=== PATIENT | female | born 1945 | race American Indian/Alaskan Native ===

== ENCOUNTER 2018-05-25 18:03 | Emergency (ER) | payer OTHER ==
[~2018-05-25] VITALS: Ht 160 cm; Wt 113.4 kg
[~2018-05-25 18:03] MED LIST: ACTOPLUS MET; ACTOPLUS MET 15/850; AMOCLA875 PO; ASPI81EC; ASPI81EC PO; BUME2 PO; CHLO25B PO; CREON; Cardizem CD 24240 MG PO; DOXY100 PO; ERGO50000; ERYT.5TO OD; EZET10 PO; FERROUS GLUCONATE; FISH1000 PO; FURO20 PO; FURO40 PO; GABA300 PO; GABA600 PO; GAVILAX17 GM PO; GLUCHON PO; HYDACE5 PO; HYDMETSO OP; IBUP800 PO; INS70/30PN; INSUASPI SC; INSULANPEN; INSULANPEN SC; LEVEMIR FL100 UNIT/1 SC; LEVO750 PO; LIDO5TP TOP; LISI5 PO; MAGCHL64ER PO; METF500 PO; METO2.5 PO; METO25ER PO; METO50 PO; METO50ER; METO50ER PO; METR70GEL VAG; Micro-K10 MEQ PO; Novolog Fl100 UNIT/1 SC; PANT40 PO; PIOG15; POTA10T PO; POTCHL20ER PO; PRED20 PO; Pedi-Dri 100,0060 GM TOP; QUIN10; ROXICODONE5 MG PO; SULTRIDS PO; Spironolactone100 MG PO; Spironolactone50 MG PO; TETR250 PO; TETRACYCLINE; TRAM50 PO; TRIA55OI; Ventolin Soln3 ML INH; WARF4 PO; Zantac150 MG PO
[2018-05-25 18:46] LABS: BASOPHILS ABSOLUTE AUTO 0.06 K/mm3 (0.00-0.23); BASOPHILS PERCENT AUTO 1 % (0-2); EOSINOPHILS ABSOLUTE AUTO 0.25 K/mm3 (0.00-0.68); EOSINOPHILS PERCENT AUTO 4 % (0-6); Hemoglobin 14.7 g/dL (11.5-16.0); IMMATURE GRAN ABSOLUTE AUTO 0.01 K/mm3 (0.00-0.10); IMMATURE GRAN PERCENT AUTO 0 % (0-1); LYMPHOCYTES ABSOLUTE AUTO 1.87 K/mm3 (0.84-5.20); LYMPHOCYTES PERCENT AUTO 28 % (21-46); MONOCYTES ABSOLUTE AUTO 0.35 K/mm3 (0.16-1.47); MONOCYTES PERCENT AUTO 5 % (4-13); Mean Corpuscular HGB 30.2 pg (26.0-34.0); Mean Corpuscular HGB Conc 33.4 g/dL (31.5-36.5); Mean Corpuscular Volume 90 fL (80-100); Mean Platelet Volume 9.5 fL (9.1-12.4); NEUTROPHILS ABSOLUTE AUTO 4.21 K/mm3 (1.96-9.15); NEUTROPHILS PERCENT AUTO 62 % (41-73); Platelet Count 234 K/mm3 (150-400); RDW Coefficient Variation 14.6 % (11.7-14.2); RDW Standard Deviation 48.4 fL (35.1-46.3); Red Blood Cell Count 4.87 M/mm3 (3.80-5.20); White Blood Cell Count 6.75 K/mm3 (4.00-11.30)
[2018-05-25 18:59] LABS: International Normalized Ratio 2.35; Prothrombin Time Results 23.1 Sec (9.7-11.5)
[2018-05-25 19:06] LABS: Alanine Aminotransfer (ALT/SGP 45 U/L (12-78); Albumin, Blood 3.4 g/dL (3.4-5.0); Albumin/Globulin Ratio 0.7 (0.8-1.8); Alk Phos 330 U/L (50-136); Anion Gap 9 mmol/L (6-16); Aspartate Aminotrans (AST/SGOT 57 U/L (12-37); Bilirubin, Total 0.5 mg/dL (0.1-1.0); Blood Urea Nitrogen 26 mg/dL (8-24); Bun/Creatinine Ratio 29.1 (12.0-20.0); CO2, Blood 28 mmol/L (21-32); Calcium, Blood 9.6 mg/dL (8.5-10.1); Chloride, Blood 99 mmol/L (98-108); Creatinine, Blood 0.89 mg/dL (0.40-1.00); Globulin, Blood 4.6 g/dL (2.2-4.0); Glomerular Filtration Rate >60 (60-); Glucose, Blood 204 mg/dL (70-99); Potassium, Blood 3.8 mmol/L (3.5-5.5); Sodium, Blood 136 mmol/L (136-145)
== END 2018-05-25 19:13 | disposition home or self-care (01) ==
LOC: ER 18:03
PROVIDERS: Emergency Medicine
DX: S09.90XA Unspecified injury of head, initial encounter (principal); K06.8 Other specified disorders of gingiva and edentulous alveolar ridge; D68.32 Hemorrhagic disorder due to extrinsic circulating anticoagulants; X58.XXXA Exposure to other specified factors, initial encounter; Z88.8 Allergy status to other drugs, medicaments and biological substances; Z88.5 Allergy status to narcotic agent; Z79.899 Other long term (current) drug therapy; Z79.01 Long term (current) use of anticoagulants; Z79.4 Long term (current) use of insulin; Z79.84 Long term (current) use of oral hypoglycemic drugs; Z79.2 Long term (current) use of antibiotics; E11.40 Type 2 diabetes mellitus with diabetic neuropathy, unspecified; I48.0 Paroxysmal atrial fibrillation; I50.32 Chronic diastolic (congestive) heart failure
CPT/HCPCS: 80053; 85025; 85610; 85730; 99283

== ENCOUNTER 2019-02-01 13:03 | Inpatient (IN) | payer OTHER ==
[~2019-02-01] VITALS: Ht 160 cm; Wt 114.2 kg
[~2019-02-01 13:03] MED LIST changes: +ACET325 PO; +CEFU500T30 PO; +NOVOLOG FL100 UNIT/1 SC; -Novolog Fl100 UNIT/1 SC
[2019-02-01 13:33] LABS: Hematocrit 46.4 % (33.0-51.0); Mean Corpuscular HGB 29.5 pg (26.0-34.0); Mean Corpuscular HGB Conc 32.3 g/dL (31.5-36.5); Mean Corpuscular Volume 91 fL (80-100); Platelet Count 185 K/mm3 (150-400); RDW Coefficient Variation 14.2 % (11.7-14.2); RDW Standard Deviation 47.7 fL (35.1-46.3); Red Blood Cell Count 5.08 M/mm3 (3.80-5.20); White Blood Cell Count 15.91 K/mm3 (4.00-11.30)
[2019-02-01] MEDS ORDERED: Flonase 0.05% N16 GM (13:42)
[2019-02-01] MEDS ORDERED: EZET10 PO (13:45)
[2019-02-01] MEDS ORDERED: COLCRYS0.6 MG PO (13:52)
[2019-02-01] MEDS ORDERED: [UNRECOGNIZED DRUG - OTHER] PO (13:52)
[2019-02-01] MEDS ORDERED: Potassium Citra5 MEQ PO (13:53)
[2019-02-01 14:18] LABS: BAND PERCENT MAN 9 % (0-8); BASOPHILS PERCENT MAN 0 % (0-2); EOSINOPHILS PERCENT MAN 0 % (0-6); LYMPHOCYTES ABSOLUTE MAN 0.31 K/mm3 (0.84-5.20); LYMPHOCYTES PERCENT MAN 2 % (21-46); MONOCYTES ABSOLUTE MAN 0.15 K/mm3 (0.16-1.47); MONOCYTES PERCENT MAN 1 % (4-13); NEUTROPHILS ABSOLUTE MAN 15.43 K/mm3 (1.96-9.15); SEG NEUTROPHILS PERCENT MAN 88 % (41-73); TOTAL CELLS COUNTED 100
[2019-02-01 15:25] LABS: Albumin/Globulin Ratio 0.6 (0.8-1.8); Bilirubin, Total 1.9 mg/dL (0.1-1.0); Calcium, Blood 9.9 mg/dL (8.5-10.1); Creatinine, Blood 1.48 mg/dL (0.40-1.00); Globulin, Blood 4.7 g/dL (2.2-4.0); Potassium, Blood 3.7 mmol/L (3.5-5.5); Total Protein, Blood 7.7 g/dL (6.4-8.2)
[2019-02-01 15:58] LABS: Source, Urine Clean Catch
[2019-02-01 16:07] LABS: Bilirubin, Urine Neg (Neg); Blood, Urine 5+ (Neg); Glucose Qualitative, Urine Neg (Neg); Ketones, Urine Neg (Neg); Leukocyte Esterase, Urine 3+ (Neg); Nitrite, Urine Neg (Neg); Protein, Urine 3+ (Neg); Urobilinogen, Urine NORM (Normal)
[2019-02-01 16:20] LABS: Appearance, Urine Cloudy (Clear); Color, Urine Yellow (P-Yellow)
[2019-02-01 16:21] LABS: Bacteria Many /hpf; Red Blood Cells, Urine TNTC /hpf (0-2); Squamous Epithelial Cells Few /hpf (Few); White Blood Cells, Urine TNTC /hpf (0-5)
[2019-02-01 18:34] LABS: International Normalized Ratio 3.38; Prothrombin Time Results 32.1 Sec (9.7-11.5)
[2019-02-01] MEDS ORDERED: CALC.25 PO (18:43)
[2019-02-01] MEDS ORDERED: BUME2 PO (18:46)
[2019-02-01] MEDS ORDERED: CALCIUM 600 +1 EAC7 PO (18:49)
[2019-02-02 05:31] LABS: BASOPHILS ABSOLUTE AUTO 0.08 K/mm3 (0.00-0.23); BASOPHILS PERCENT AUTO 0 % (0-2); EOSINOPHILS PERCENT AUTO 0 % (0-6); Hematocrit 43.8 % (33.0-51.0); IMMATURE GRAN ABSOLUTE AUTO 0.37 K/mm3 (0.00-0.10); IMMATURE GRAN PERCENT AUTO 2 % (0-1); LYMPHOCYTES ABSOLUTE AUTO 0.42 K/mm3 (0.84-5.20); LYMPHOCYTES PERCENT AUTO 2 % (21-46); MONOCYTES ABSOLUTE AUTO 1.02 K/mm3 (0.16-1.47); MONOCYTES PERCENT AUTO 5 % (4-13); Mean Corpuscular HGB 29.5 pg (26.0-34.0); Mean Corpuscular Volume 92 fL (80-100); Mean Platelet Volume 9.8 fL (9.1-12.4); NEUTROPHILS PERCENT AUTO 91 % (41-73); Platelet Count 150 K/mm3 (150-400); RDW Coefficient Variation 14.1 % (11.7-14.2); RDW Standard Deviation 47.8 fL (35.1-46.3); Red Blood Cell Count 4.75 M/mm3 (3.80-5.20); White Blood Cell Count 20.39 K/mm3 (4.00-11.30)
[2019-02-02 05:49] LABS: International Normalized Ratio 3.14
[2019-02-02 05:55] LABS: Bun/Creatinine Ratio 25.7 (12.0-20.0); Calcium, Blood 9.3 mg/dL (8.5-10.1); Creatinine, Blood 1.75 mg/dL (0.40-1.00); Potassium, Blood 3.7 mmol/L (3.5-5.5)
--- NOTE | 2019-02-02 16:25 | NUR ---
SHIFT SUMMARY PCU TRANSFER AT 1545. PATIETN SETTLED INTO ROOM. DENIES PAIN, NAUSEA, AND SHORTNESS OF BREATH. SON AT BEDSIDE. SBA TO BR. CALL LIGHT IN REACH, WILL CONTINUE TO MONITOR.
[2019-02-03 04:18] LABS: Source, Urine Clean Catch
[2019-02-03 04:20] LABS: Bilirubin, Urine Neg (Neg); Blood, Urine 5+ (Neg); Glucose Qualitative, Urine Neg (Neg); Ketones, Urine Neg (Neg); Leukocyte Esterase, Urine 1+ (Neg); Nitrite, Urine Neg (Neg); Protein, Urine 1+ (Neg); Urobilinogen, Urine NORM (Normal)
[2019-02-03 04:28] LABS: Appearance, Urine Clear (Clear); Color, Urine Yellow (P-Yellow)
[2019-02-03 04:29] LABS: Bacteria Rare /hpf; Red Blood Cells, Urine 50-100 /hpf (0-2); Squamous Epithelial Cells Few /hpf (Few); White Blood Cells, Urine 0-2 /hpf (0-5)
--- NOTE | 2019-02-03 04:40 | NUR ---
SHIFT SUMMARY PT SLEPT FAIR, HAS BEEN INCONTINENT OF URINE DURING THE NIGHT. ALSO USES RESTROOM, URINE SAMPLE OBTAINED AND SENT TO LAB. PT CONTINUES TO HAVE OXYGEN ON AT 4L/NC. NO ACUTE EVENTS OVERNIGHT. WILL CONTINUE TO MONITOR.
[2019-02-03 05:17] LABS: BASOPHILS ABSOLUTE AUTO 0.04 K/mm3 (0.00-0.23); BASOPHILS PERCENT AUTO 0 % (0-2); EOSINOPHILS ABSOLUTE AUTO 0.07 K/mm3 (0.00-0.68); EOSINOPHILS PERCENT AUTO 1 % (0-6); Hematocrit 40.9 % (33.0-51.0); Hemoglobin 13.2 g/dL (11.5-16.0); IMMATURE GRAN PERCENT AUTO 1 % (0-1); LYMPHOCYTES ABSOLUTE AUTO 0.52 K/mm3 (0.84-5.20); LYMPHOCYTES PERCENT AUTO 4 % (21-46); MONOCYTES ABSOLUTE AUTO 0.53 K/mm3 (0.16-1.47); MONOCYTES PERCENT AUTO 4 % (4-13); Mean Corpuscular HGB 29.3 pg (26.0-34.0); Mean Corpuscular HGB Conc 32.3 g/dL (31.5-36.5); Mean Corpuscular Volume 91 fL (80-100); Mean Platelet Volume 10.6 fL (9.1-12.4); NEUTROPHILS ABSOLUTE AUTO 11.45 K/mm3 (1.96-9.15); NEUTROPHILS PERCENT AUTO 90 % (41-73); Platelet Count 148 K/mm3 (150-400); RDW Coefficient Variation 14.1 % (11.7-14.2); RDW Standard Deviation 47.4 fL (35.1-46.3); Red Blood Cell Count 4.51 M/mm3 (3.80-5.20); White Blood Cell Count 12.71 K/mm3 (4.00-11.30)
[2019-02-03 05:31] LABS: International Normalized Ratio 2.09; Prothrombin Time Results 20.7 Sec (9.7-11.5)
[2019-02-03 05:47] LABS: Bun/Creatinine Ratio 35.6 (12.0-20.0); Calcium, Blood 9.6 mg/dL (8.5-10.1); Creatinine, Blood 1.35 mg/dL (0.40-1.00); Potassium, Blood 3.6 mmol/L (3.5-5.5)
--- NOTE | 2019-02-03 11:30 | NUR ---
DISCHARGE NOTE PATIENT WILL NOT HAVE A RIDE UNTIL APPROXIMATELY 1430
[2019-02-03] MEDS ORDERED: LEVFLO500 PO (12:56)
--- NOTE | 2019-02-03 13:45 | NUR ---
DISCHARGE NOTE PT DISCHARGED; FAMILY TO ARRIVE TO HOSPITAL @1430 TO TRANSPORT PT HOME. IV DISCONTINUED INTACT. PT VERBALIZED UNDERSTANDING OF MAKING A FOLLOW UP APPT WITH PCP WITH 1 WEEK AND TAKING ANTIBIOTICS FOR FULL COURSE.
== END 2019-02-03 14:28 | disposition home or self-care (01) | DRG 872 ==
LOC: ER 13:03 → ERHOLD 16:58 → MEDS 02-02 11:00 → PCU 02-02 11:20 → MEDS 02-02 15:44 → ENPENDDIS 02-03 10:31 → MEDS 02-03 14:28
PROVIDERS: Emergency Medicine; ADMIT Hospitalist
DX: A41.9 Sepsis, unspecified organism (principal); N39.0 Urinary tract infection, site not specified; I50.32 Chronic diastolic (congestive) heart failure; Z68.41 Body mass index [BMI] 40.0-44.9, adult; R65.20 Severe sepsis without septic shock; B96.20 Unspecified Escherichia coli [E. coli] as the cause of diseases classified elsewhere; Z79.4 Long term (current) use of insulin; I11.0 Hypertensive heart disease with heart failure; E11.40 Type 2 diabetes mellitus with diabetic neuropathy, unspecified; E66.01 Morbid (severe) obesity due to excess calories; Z79.01 Long term (current) use of anticoagulants; I48.2 Chronic atrial fibrillation
CPT/HCPCS: 36415; 71046; 80048; 80053; 81001; 82947; 83605; 83880; 84484; 85025; 85610; 87040; 87077; 87086; 87186; 93005; 93010; 96361; 96365; 96366; 96367; 96375; 99285-25; J0696; J3480; J7030; P9612

== ENCOUNTER 2019-12-05 11:55 | Inpatient (IN) | payer OTHER ==
[~2019-12-05] VITALS: Ht 160 cm; Wt 75.9 kg
[~2019-12-05 11:55] MED LIST changes: +CALCIUM 600 +1 EAC7 PO; +COLCRYS0.6 MG PO; -Cardizem CD 24240 MG PO; +Flonase 0.05% N16 GM; -GABA600 PO; +LEVFLO500 PO; -METF500 PO; -METO50 PO; +[UNRECOGNIZED DRUG - OTHER] PO
[2019-12-05 12:32] LABS: BASOPHILS ABSOLUTE AUTO 0.03 K/mm3 (0.00-0.23); BASOPHILS PERCENT AUTO 1 % (0-2); EOSINOPHILS ABSOLUTE AUTO 0.11 K/mm3 (0.00-0.68); EOSINOPHILS PERCENT AUTO 2 % (0-6); Hematocrit 42.8 % (33.0-51.0); Hemoglobin 13.2 g/dL (11.5-16.0); IMMATURE GRAN ABSOLUTE AUTO 0.01 K/mm3 (0.00-0.10); IMMATURE GRAN PERCENT AUTO 0 % (0-1); LYMPHOCYTES ABSOLUTE AUTO 0.78 K/mm3 (0.84-5.20); LYMPHOCYTES PERCENT AUTO 14 % (21-46); MONOCYTES ABSOLUTE AUTO 0.38 K/mm3 (0.16-1.47); MONOCYTES PERCENT AUTO 7 % (4-13); Mean Corpuscular HGB 30.3 pg (26.0-34.0); Mean Corpuscular HGB Conc 30.8 g/dL (31.5-36.5); Mean Corpuscular Volume 98 fL (80-100); Mean Platelet Volume 9.6 fL (9.1-12.4); NEUTROPHILS ABSOLUTE AUTO 4.12 K/mm3 (1.96-9.15); NEUTROPHILS PERCENT AUTO 76 % (41-73); Platelet Count 157 K/mm3 (150-400); RDW Coefficient Variation 14.8 % (11.7-14.2); RDW Standard Deviation 53.8 fL (35.1-46.3); Red Blood Cell Count 4.36 M/mm3 (3.80-5.20); White Blood Cell Count 5.43 K/mm3 (4.00-11.30)
[2019-12-05 12:43] LABS: Source, Urine Catheter
[2019-12-05 12:48] LABS: Bilirubin, Urine Neg (Neg); Blood, Urine 5+ (Neg); Glucose Qualitative, Urine Neg (Neg); Ketones, Urine Neg (Neg); Leukocyte Esterase, Urine Neg (Neg); Nitrite, Urine Neg (Neg); Protein, Urine Neg (Neg); Specific Gravity, Urine 1.015 (1.003-1.022); Urobilinogen, Urine NORM (Normal)
[2019-12-05 12:52] LABS: Appearance, Urine Clear (Clear); Color, Urine Yellow (P-Yellow)
[2019-12-05 12:53] LABS: Bacteria Rare /hpf; Red Blood Cells, Urine TNTC /hpf (0-2); Squamous Epithelial Cells Few /hpf (Few); White Blood Cells, Urine Not Seen /hpf (0-5)
[2019-12-05 12:55] LABS: Alanine Aminotransfer (ALT/SGP 30 U/L (12-78); Albumin, Blood 3.1 g/dL (3.4-5.0); Albumin/Globulin Ratio 0.7 (0.8-1.8); Alk Phos 321 U/L (50-136); Anion Gap 0 mmol/L (6-16); Aspartate Aminotrans (AST/SGOT 41 U/L (12-37); Bilirubin, Total 0.7 mg/dL (0.1-1.0); Blood Urea Nitrogen 29 mg/dL (8-24); CO2, Blood 43 mmol/L (21-32); Calcium, Blood 10.6 mg/dL (8.5-10.1); Chloride, Blood 96 mmol/L (98-108); Creatinine, Blood 0.63 mg/dL (0.40-1.00); Globulin, Blood 4.5 g/dL (2.2-4.0); Glomerular Filtration Rate >60 (60-); Glucose, Blood 176 mg/dL (70-99); Potassium, Blood 3.8 mmol/L (3.5-5.5); Sodium, Blood 139 mmol/L (136-145); Total Protein, Blood 7.6 g/dL (6.4-8.2)
[2019-12-05] MEDS ORDERED: KEFLEX500 MG PO (13:18)
[2019-12-05] MEDS ORDERED: MAGCHL64ER PO (13:20)
[2019-12-05] MEDS ORDERED: Cardizem CD 24240 MG PO (14:43)
[2019-12-05] MEDS ORDERED: METO50 PO (14:43)
[2019-12-05] MEDS ORDERED: METF500 PO (14:43)
[2019-12-05] MEDS ORDERED: GABA600 PO (14:45)
[2019-12-05] MEDS ORDERED: EZET10 PO (14:45)
[2019-12-05] MEDS ORDERED: Bumetanide2 MG PO (14:46)
[2019-12-05] MEDS ORDERED: Potassium Citra5 MEQ PO (14:48)
[2019-12-05] MEDS ORDERED: WARF4 PO (14:49)
[2019-12-05] MEDS ORDERED: CALC.25 PO (14:49)
[2019-12-05] MEDS ORDERED: ALLOPURINOL100 M1 PO (14:49)
[2019-12-05 16:00] LABS: International Normalized Ratio 1.78; Prothrombin Time Results 18.4 Sec (9.7-11.5)
[2019-12-05] MEDS ORDERED: Fish Oil 10001000 MG (22:37)
[2019-12-05] MEDS ORDERED: TRAM50 (22:37)
[2019-12-06 04:16] LABS: BASOPHILS ABSOLUTE AUTO 0.07 K/mm3 (0.00-0.23); BASOPHILS PERCENT AUTO 1 % (0-2); EOSINOPHILS ABSOLUTE AUTO 0.18 K/mm3 (0.00-0.68); EOSINOPHILS PERCENT AUTO 3 % (0-6); Hematocrit 41.2 % (33.0-51.0); Hemoglobin 12.5 g/dL (11.5-16.0); IMMATURE GRAN PERCENT AUTO 0 % (0-1); LYMPHOCYTES ABSOLUTE AUTO 1.29 K/mm3 (0.84-5.20); LYMPHOCYTES PERCENT AUTO 20 % (21-46); MONOCYTES ABSOLUTE AUTO 0.57 K/mm3 (0.16-1.47); MONOCYTES PERCENT AUTO 9 % (4-13); Mean Corpuscular HGB 29.8 pg (26.0-34.0); Mean Corpuscular HGB Conc 30.3 g/dL (31.5-36.5); Mean Corpuscular Volume 98 fL (80-100); Mean Platelet Volume 9.5 fL (9.1-12.4); NEUTROPHILS ABSOLUTE AUTO 4.46 K/mm3 (1.96-9.15); NEUTROPHILS PERCENT AUTO 68 % (41-73); Platelet Count 165 K/mm3 (150-400); RDW Standard Deviation 53.9 fL (35.1-46.3); White Blood Cell Count 6.57 K/mm3 (4.00-11.30)
[2019-12-06 04:29] LABS: International Normalized Ratio 1.6; Prothrombin Time Results 16.7 Sec (9.7-11.5)
[2019-12-06 04:35] LABS: Alanine Aminotransfer (ALT/SGP 24 U/L (12-78); Albumin, Blood 3.1 g/dL (3.4-5.0); Albumin/Globulin Ratio 0.7 (0.8-1.8); Alk Phos 287 U/L (50-136); Aspartate Aminotrans (AST/SGOT 31 U/L (12-37); Bilirubin, Total 0.9 mg/dL (0.1-1.0); Blood Urea Nitrogen 28 mg/dL (8-24); Calcium, Blood 9.9 mg/dL (8.5-10.1); Chloride, Blood 95 mmol/L (98-108); Creatinine, Blood 0.85 mg/dL (0.40-1.00); Globulin, Blood 4.3 g/dL (2.2-4.0); Glomerular Filtration Rate >60 (60-); Glucose, Blood 115 mg/dL (70-99); Potassium, Blood 3.7 mmol/L (3.5-5.5); Sodium, Blood 142 mmol/L (136-145); Total Protein, Blood 7.4 g/dL (6.4-8.2)
--- NOTE | 2019-12-06 04:35 | NUR ---
END OF SHIFT SUMMARY PT TO UNTIO FROM ED. AMBULATES TO BSC VIA WALKER SBA. PT'S BACKSIDE AND PANUS PRESENTS DARK RED IN AREAS, PT BEING SHIFTEDC IN BED. LUNG SOUNDS DIM WITH BASAL FINE CRACKLES. BAZAN PRESENT ON ADMIT, PINK URINE OUTPUT. PT STATES BREATHING FEELS MUCH BETTER. PT DENIES CP. VSS. HAS MAINTANED SPO2 >92% WELL WITH 4LNC, WHICH IS BASELINE FOR HER. PT AWARE OF UPCOMING PARACENTESIS TODAY. OTHERWISER PT HAS BEEN ASLEEP OFF AND ON T/O NIGHT, HAS BEEN VERY PLEASANT AND HAS BEEN ABLE TO EXPRESS NEEDS WELL. WILL CONTINUE TO MONITOR UNTIL SHIFT CHANGE.
[2019-12-06 05:03] LABS: Anion Gap Unable to Calculate mmol/L (6-16); CO2, Blood >45 mmol/L (21-32)
[2019-12-06 06:01] LABS: PCO2 Arterial 82.7 mmHg (35-45); PO2 Arterial 93.6 mmHg (80-100); pH Blood Arterial 7.38 (7.35-7.45)
--- NOTE | 2019-12-06 06:09 | NUR ---
PROVIDER AM LABS SHOW >45CO2. CALL TO DR CAMACHO. ABG CALLED, PC02 [id number]. OTHER ABG VALUS DISCUSSE AND PT'S CURRENT MENTATION/O2 INTAKE. ORDERS TO DECREASE O2 TOLERATED.
--- NOTE | 2019-12-06 08:00 | NUR ---
ASSUMPTION OF CARE RECEIVED REPORT FROM BUSINESS PROCESS ASSOCIATE IDA SURESH AROUND 714. PT RESTING COMFORTABLY IN BED AAOX3, NO S/S OF DISTRESS, CURRENTLY ON 3L O2 VIA NC. VS STABLE. BAZAN CATHETER IN PLACE DRAINING CLEAR PINK-TINGED URINE. PLAN FOR THORACENTESIS TODAY. BED LOCKED & IN LOWEST POSITION, CALL QURESHI W/ IN REACH. WILL CONTINUE TO MONITOR.
--- NOTE | 2019-12-06 09:30 | NUR ---
PT TRANSPORTED OFF FLOOR TO US FOR THORACENTESIS. LEFT ROOM IN STABLE CONDITION VIA WHEELCHAIR W/ 3L O2 VIA NC IN PLACE. PT'S SON TEENA NOTIFIED VIA TELEPHONE OF PT GOING TO PROCEDURE AT THIS TIME.
[2019-12-06 10:45] LABS: Automated BF RBC Count 0.084 M/mm3 (0-0); Body Fluid WBC Count 650 /mm3 (0-999); RBC Count, Body Fluid 84000 /mm3 (0-0)
[2019-12-06 10:53] LABS: Albumin, Body Fluid 2.3 g/dL; Lactate Dehydrogenase, Body Fl 94 U/L; Protein, Body Fluid 4.3 g/dL; Triglycerides, Body Fluid 42 mg/dL
--- NOTE | 2019-12-06 10:55 | NUR ---
PT RETURNED TO FLOOR FROM US IN STABLE CONDITION. VS STABLE. BANDAID PRESENT TO RIGHT UPPER BACK FROM THORACENTESIS SITE. RESPIRATIONS EVEN & UNLABORED, PT REMAINS ON 3L O2 VIA NC. PT SITTING UP IN CHAIR. WILL CONTINUE TO MONITOR.
[2019-12-06 11:24] LABS: Appearance, Body Fluid Bloody (Clear); Color, Body Fluid Red (None-Yellow)
[2019-12-06 11:37] LABS: pH, Body Fluid 7.9
[2019-12-06 12:00] LABS: Total Cell Count, Body Fluid 100
--- NOTE | 2019-12-06 17:53 | NUR ---
SHIFT SUMMARY NO ACUTE CHANGES THROUGHOUT SHIFT. VS STABLE. PT REMAINS ON 3L O2 VIA NC, PULSE OX MAINTAINING 94-97%. PT DENIED ANY C/O CHEST PAIN/PRESSURE; SOME SOB NOTED W/ EXERTION. PT HAD RIGHT SIDED THORACENTESIS COMPLETED TODAY; SITE UNREMARKABLE; DRESSING REMAINS CDI. BAZAN CATHETER REMOVED AROUND 1700; MONITORING VOIDING STATUS CLOSELY. PT IS OPEN FOR CXR & ECHO TOMORROW. WILL CONITNUE TO MONITOR UNTIL END OF SHIFT.
[2019-12-07 04:46] LABS: BASOPHILS ABSOLUTE AUTO 0.04 K/mm3 (0.00-0.23); BASOPHILS PERCENT AUTO 1 % (0-2); EOSINOPHILS ABSOLUTE AUTO 0.24 K/mm3 (0.00-0.68); EOSINOPHILS PERCENT AUTO 4 % (0-6); Hematocrit 42.9 % (33.0-51.0); Hemoglobin 13.1 g/dL (11.5-16.0); IMMATURE GRAN ABSOLUTE AUTO 0.02 K/mm3 (0.00-0.10); IMMATURE GRAN PERCENT AUTO 0 % (0-1); LYMPHOCYTES PERCENT AUTO 19 % (21-46); MONOCYTES ABSOLUTE AUTO 0.45 K/mm3 (0.16-1.47); MONOCYTES PERCENT AUTO 7 % (4-13); Mean Corpuscular HGB 29.8 pg (26.0-34.0); Mean Corpuscular HGB Conc 30.5 g/dL (31.5-36.5); Mean Corpuscular Volume 98 fL (80-100); Mean Platelet Volume 9.5 fL (9.1-12.4); NEUTROPHILS ABSOLUTE AUTO 4.25 K/mm3 (1.96-9.15); NEUTROPHILS PERCENT AUTO 69 % (41-73); Platelet Count 161 K/mm3 (150-400); RDW Coefficient Variation 14.8 % (11.7-14.2); RDW Standard Deviation 53.3 fL (35.1-46.3)
[2019-12-07 05:00] LABS: PCO2 Arterial 76.5 mmHg (35-45); PO2 Arterial 69.1 mmHg (80-100); pH Blood Arterial 7.41 (7.35-7.45)
[2019-12-07 05:10] LABS: Blood Urea Nitrogen 30 mg/dL (8-24); Bun/Creatinine Ratio 35.8 (12.0-20.0); Calcium, Blood 10.2 mg/dL (8.5-10.1); Chloride, Blood 94 mmol/L (98-108); Creatinine, Blood 0.84 mg/dL (0.40-1.00); Glomerular Filtration Rate >60 (60-); Glucose, Blood 156 mg/dL (70-99); Magnesium, Blood 1.9 mg/dL (1.6-2.4); Potassium, Blood 3.8 mmol/L (3.5-5.5); Sodium, Blood 139 mmol/L (136-145)
[2019-12-07 05:14] LABS: Free Thyroxine 1.13 ng/dL (0.70-1.60)
[2019-12-07 05:36] LABS: Anion Gap Unable to Calculate mmol/L (6-16)
[2019-12-07 05:37] LABS: CO2, Blood >45 mmol/L (21-32)
--- NOTE | 2019-12-07 05:41 | NUR ---
CONDITION UNCHANGED SINCE BEGINNING OF SHIFT. SEE Miira FOR FULL ASSESSMENT.
--- NOTE | 2019-12-07 08:00 | NUR ---
ASSUMPTION OF CARE RECEIVED REPORT FROM PEANUT SORTER RNJOSÉ MANUEL AROUND 714. PT AAOX3 RESTING COMFORTABLY IN BED, NO S/S OF DISTRESS, CURRENTLY ON 1L O2 VIA NC, PULSE OX 95%. BREATHING EVEN & UNLABORED, NO CHANGES TO THORACENTESIS SITE. PT VOIDING WITHOUT DIFFICULTY SINCE REMOVAL OF BAZAN CATHETER YESTERDAY. PT OPEN FOR ECHO TODAY. BED LOCKED & IN LOWEST POSITION, CALL QURESHI & PERSONAL BELONGINGS W/ IN REACH. WILL CONTINUE TO MONITOR.
[2019-12-07] MEDS ORDERED: INSULANPEN SC (12:30)
[2019-12-07] MEDS ORDERED: LISI5 PO (12:31)
[2019-12-07] MEDS ORDERED: POTA10T PO (12:32)
[2019-12-07] MEDS ORDERED: SPIR25 PO (12:32)
--- NOTE | 2019-12-07 14:52 | NUR ---
DISCHARGE SUMMARY NO ACUTE CHANGES THROUGHOUT SHIFT. VS REMAINED STABLE. DISCHARGE EDUCATION COMPLETED W/ PT & PT'S SON. DISCUSSED MED REC & FOLLOW UP INSTRUCTIONS. PT VERBALIZED UNDERSTANDING & STATED SHE WOULD FOLLOW UP INSTRUCTED & TAKE MEDS PRESCRIBED. EDUCATIONAL HANDOUTS PROVIDED ON CHF & COUMADIN. PT TO APPELLATE LAW CLERK NEW PRESCRIPTIONS AT HER HOME PHARMACY. IV & TELE REMOVED. PT DISCHARGED HOME. TRANSPORTED OFF UNIT VIA WHEELCHAIR IN STABLE CONDITION W/ ALL PAPERWORK & BELONGINGS.
== END 2019-12-07 14:51 | disposition home or self-care (01) | DRG 291 ==
LOC: ER 11:55 → ERHOLD 15:57 → PCU 22:24
PROVIDERS: Emergency Medicine; Family Medicine; Nurse Practitioner Acute Care; ADMIT Internal Medicine
PROC: 0W993ZX Drainage of Right Pleural Cavity, Percutaneous Approach, Diagnostic (ICD-10-PCS; principal; 2019-12-06)
DX: I11.0 Hypertensive heart disease with heart failure (principal); J96.21 Acute and chronic respiratory failure with hypoxia; J96.22 Acute and chronic respiratory failure with hypercapnia; J90 Pleural effusion, not elsewhere classified; I48.20 Chronic atrial fibrillation, unspecified; E66.2 Morbid (severe) obesity with alveolar hypoventilation; Z68.41 Body mass index [BMI] 40.0-44.9, adult; I50.33 Acute on chronic diastolic (congestive) heart failure; E11.42 Type 2 diabetes mellitus with diabetic polyneuropathy; M19.90 Unspecified osteoarthritis, unspecified site; R91.1 Solitary pulmonary nodule; G25.81 Restless legs syndrome; Z88.6 Allergy status to analgesic agent; Z88.5 Allergy status to narcotic agent; Z88.2 Allergy status to sulfonamides; Z88.8 Allergy status to other drugs, medicaments and biological substances; Z91.018 Allergy to other foods; Z79.01 Long term (current) use of anticoagulants; Z79.84 Long term (current) use of oral hypoglycemic drugs; Z79.4 Long term (current) use of insulin; Z79.51 Long term (current) use of inhaled steroids; Z79.899 Other long term (current) drug therapy
CPT/HCPCS: 32555; 36415; 36600; 51702; 71045; 74176; 80048; 80053; 81001; 82042; 82803; 82947; 83605; 83615; 83735; 83880; 83986; 84157; 84439; 84443; 84478; 85025; 85610; 85730; 89051; 93005; 93010; 96374-59; 97110; 97116; 97162; 97166; 99285-25; A9270-GY; C8929; J7030; Q9957

== ENCOUNTER 2020-01-03 11:32 | Inpatient (IN) | payer OTHER ==
[~2020-01-03] VITALS: Ht 160 cm; Wt 107.6 kg
[~2020-01-03 11:32] MED LIST changes: +ALLOPURINOL100 M1 PO; +Bumetanide2 MG PO; +CALC.25 PO; +Cardizem CD 24240 MG PO; +Fish Oil 10001000 MG; +GABA600 PO; +KEFLEX500 MG PO; +METF500 PO; +METO50 PO; +Potassium Citra5 MEQ PO; +SPIR25 PO; +TRAM50
[2020-01-03 11:58] LABS: Source, Urine Catheter
[2020-01-03 12:24] LABS: Appearance, Urine Clear (Clear); Bilirubin, Urine Neg (Neg); Blood, Urine 5+ (Neg); Color, Urine Yellow (P-Yellow); Glucose Qualitative, Urine Neg (Neg); Ketones, Urine Neg (Neg); Leukocyte Esterase, Urine Neg (Neg); Nitrite, Urine Neg (Neg); Protein, Urine Neg (Neg); Urobilinogen, Urine NORM (Normal)
[2020-01-03 12:29] LABS: Bacteria Rare /hpf; Red Blood Cells, Urine 50-100 /hpf (0-2); Squamous Epithelial Cells Rare /hpf (Few); White Blood Cells, Urine 0-2 /hpf (0-5)
[2020-01-03 12:32] LABS: BASOPHILS ABSOLUTE AUTO 0.06 K/mm3 (0.00-0.23); BASOPHILS PERCENT AUTO 1 % (0-2); EOSINOPHILS ABSOLUTE AUTO 0.12 K/mm3 (0.00-0.68); EOSINOPHILS PERCENT AUTO 2 % (0-6); Hematocrit 43.1 % (33.0-51.0); Hemoglobin 12.8 g/dL (11.5-16.0); IMMATURE GRAN ABSOLUTE AUTO 0.01 K/mm3 (0.00-0.10); IMMATURE GRAN PERCENT AUTO 0 % (0-1); LYMPHOCYTES ABSOLUTE AUTO 0.99 K/mm3 (0.84-5.20); LYMPHOCYTES PERCENT AUTO 19 % (21-46); MONOCYTES PERCENT AUTO 8 % (4-13); Mean Corpuscular HGB Conc 29.7 g/dL (31.5-36.5); Mean Corpuscular Volume 101 fL (80-100); Mean Platelet Volume 9.5 fL (9.1-12.4); NEUTROPHILS ABSOLUTE AUTO 3.66 K/mm3 (1.96-9.15); NEUTROPHILS PERCENT AUTO 70 % (41-73); Platelet Count 154 K/mm3 (150-400); RDW Coefficient Variation 14.7 % (11.7-14.2); RDW Standard Deviation 55.1 fL (35.1-46.3); Red Blood Cell Count 4.26 M/mm3 (3.80-5.20); White Blood Cell Count 5.24 K/mm3 (4.00-11.30)
[2020-01-03 12:35] LABS: Alanine Aminotransfer (ALT/SGP 24 U/L (12-78); Albumin, Blood 3.3 g/dL (3.4-5.0); Albumin/Globulin Ratio 0.8 (0.8-1.8); Alk Phos 230 U/L (50-136); Anion Gap 1 mmol/L (6-16); Aspartate Aminotrans (AST/SGOT 26 U/L (12-37); Bilirubin, Total 0.5 mg/dL (0.1-1.0); Blood Urea Nitrogen 32 mg/dL (8-24); CO2, Blood 37 mmol/L (21-32); Calcium, Blood 10.6 mg/dL (8.5-10.1); Chloride, Blood 102 mmol/L (98-108); Creatinine, Blood 0.89 mg/dL (0.40-1.00); Globulin, Blood 4.3 g/dL (2.2-4.0); Glomerular Filtration Rate >60 (60-); Glucose, Blood 88 mg/dL (70-99); Sodium, Blood 140 mmol/L (136-145); Total Protein, Blood 7.6 g/dL (6.4-8.2)
[2020-01-03] MEDS ORDERED: EZETIMIBE10 MG PO (13:18)
[2020-01-03] MEDS ORDERED: WARF4 PO (13:24)
[2020-01-03 13:26] LABS: International Normalized Ratio 2.69; Prothrombin Time Results 27.2 Sec (9.7-11.5)
--- NOTE | 2020-01-03 16:00 | NUR ---
CLARIFIED WITH SHILPA NOBLES THAT PATIENT DOES NOT NEED ISOLATION PRECAUTIONS AT THIS TIME; EMR SYSTEM PROMPTED R/O COVID-19 DUE TO SOB AND COUGH. PATIENT HAS PLEURAL EFFUSION, NO NEED FOR ISOLATION AT THIS TIME.
[2020-01-03] MEDS ORDERED: CEPH500 PO (18:38)
--- NOTE | 2020-01-03 19:07 | NUR ---
SHIFT SUMMARY PATIENT ADMISSION ASSESSMENT COMPLETED. ON 3LPM NC AT BASELINE. RESPIRATIONS LIMITED BY POSTURE/HUNCHING, SIGNIFICANT WILD AND ORTHOPNEA. PATIENT CONTINUOUSLY INCONTINENT, FREQUENT INCONTINENCE CARE PROVIDED. SIGNED BLOOD CONSENT; PATIENT REFUSING ALL BLOOD PRODUCTS DUE TO BEING A BUDDHIST. UPDATED PATIENT'S SISTER AVERY AND SON LASHAY WITH PATIENT'S CLINICAL STATUS. PATIENT GOING FOR THORACENTESIS TOMORROW.
[2020-01-04 04:34] LABS: BASOPHILS ABSOLUTE AUTO 0.05 K/mm3 (0.00-0.23); BASOPHILS PERCENT AUTO 1 % (0-2); EOSINOPHILS ABSOLUTE AUTO 0.16 K/mm3 (0.00-0.68); EOSINOPHILS PERCENT AUTO 3 % (0-6); Hematocrit 41.6 % (33.0-51.0); Hemoglobin 12.6 g/dL (11.5-16.0); IMMATURE GRAN PERCENT AUTO 0 % (0-1); LYMPHOCYTES ABSOLUTE AUTO 1.07 K/mm3 (0.84-5.20); LYMPHOCYTES PERCENT AUTO 21 % (21-46); MONOCYTES ABSOLUTE AUTO 0.44 K/mm3 (0.16-1.47); MONOCYTES PERCENT AUTO 9 % (4-13); Mean Corpuscular HGB 29.9 pg (26.0-34.0); Mean Corpuscular HGB Conc 30.3 g/dL (31.5-36.5); Mean Corpuscular Volume 99 fL (80-100); Mean Platelet Volume 9.2 fL (9.1-12.4); NEUTROPHILS ABSOLUTE AUTO 3.46 K/mm3 (1.96-9.15); NEUTROPHILS PERCENT AUTO 67 % (41-73); Platelet Count 141 K/mm3 (150-400); RDW Coefficient Variation 14.5 % (11.7-14.2); Red Blood Cell Count 4.21 M/mm3 (3.80-5.20); White Blood Cell Count 5.18 K/mm3 (4.00-11.30)
[2020-01-04 04:47] LABS: International Normalized Ratio 2.16; Prothrombin Time Results 22.1 Sec (9.7-11.5)
[2020-01-04 04:55] LABS: Alanine Aminotransfer (ALT/SGP 19 U/L (12-78); Albumin, Blood 3.2 g/dL (3.4-5.0); Albumin/Globulin Ratio 0.8 (0.8-1.8); Alk Phos 209 U/L (50-136); Anion Gap 2 mmol/L (6-16); Aspartate Aminotrans (AST/SGOT 25 U/L (12-37); Bilirubin, Total 1.1 mg/dL (0.1-1.0); Blood Urea Nitrogen 30 mg/dL (8-24); Bun/Creatinine Ratio 31.4 (12.0-20.0); CO2, Blood 39 mmol/L (21-32); Calcium, Blood 10.4 mg/dL (8.5-10.1); Chloride, Blood 98 mmol/L (98-108); Creatinine, Blood 0.96 mg/dL (0.40-1.00); Globulin, Blood 4.1 g/dL (2.2-4.0); Glomerular Filtration Rate >60 (60-); Glucose, Blood 103 mg/dL (70-99); Magnesium, Blood 1.7 mg/dL (1.6-2.4); Potassium, Blood 4.7 mmol/L (3.5-5.5); Sodium, Blood 139 mmol/L (136-145); Total Protein, Blood 7.3 g/dL (6.4-8.2)
--- NOTE | 2020-01-04 05:06 | NUR ---
BILLET INSPECTOR SUMMARY NO ACUTE CHANGES THIS SHIFT. PT AAOX3 AND CALLS APPROPRIATELY FOR ASSITANCE. PT CONSTANTLY SITS IN BED LEANING FORWARD BECAUSE SHE SAYS SHE CAN'T BREATHE OTHERWISE. ON 4L O2 VIA NC WHICH IS BASELINE. INCONTINENT OF URINE, HAVE BEEN HAVING PT STAND UP AT BEDSIDE WITH FWW WHILE BEDDING IS CHANGED PT CAN'T TOLERATE LAYING FLAT FOR ATTENDS CHANGES. PT TO HAVE THORACENTESIS LATER TODAY. HR HAS AVG 90'S, OCCASIONALLY TOUCHING 100'S. VSS, WILL CONTINUE TO MONITOR.
--- NOTE | 2020-01-04 09:33 | NUR ---
PT/INR LEVEL REGARDING THORACENTESIS WAS NOTIFIED BY CRISTHIAN RAMIREZ THAT PATIENT'S PT/INR IS TOO HIGH FOR PLANNED THORACENTESIS. NOTIFIED DR. VU, WHO ORDERED VITAMIN K 10MG IV X1DOSE. PATIENT NOT A CANDIDATE FOR [facility] DUE TO BEING A GNOSTICIST. WILL REPEAT PT/INR IN 4 HOURS FROM ADMINISTRATION TIME.
[2020-01-04 14:40] LABS: International Normalized Ratio 1.61
[2020-01-04 14:45] LABS: Prothrombin Time Results 16.8 Sec (9.7-11.5)
--- NOTE | 2020-01-04 15:37 | NUR ---
PATIENT TRANSPORTED TO THORACENTESIS IN IR; PT/INR WITHIN ACCEPTABLE PARAMETER FOR PROCEDURE PER CRISTHIAN RAMIREZ.
--- NOTE | 2020-01-04 15:56 | NUR ---
PATIENT'S TELEMETRY D/C'D EARLIER THIS AFTERNOON PER ORDER
--- NOTE | 2020-01-04 18:14 | NUR ---
SHIFT SUMMARY PATIENT WENT FOR THORACENTESIS, 600ML OF PLEURAL FLUID ASPIRATED PER REPORT. PATIENT REPORTS "FEELING BETTER" LUNG SOUNDS AND OXYGEN EXCHANGE IMPROVING, WEANED TO 2-2.5LPM NC. PATIENT TOLERATING ORAL LIQUIDS AND DINNER WELL. SCDS REMAIN ON. PATIENT FOR PROBABLE DISCHARGE IN THE MORNING.
--- NOTE | 2020-01-05 03:09 | NUR ---
SHIFT SUMMARY ASSUMED CARE PF PT AT 1900. PT IS A/OX3, DENIES N/T IN EXTREMITIES AT THIS TIME BUT HAS HX OF NEUROPATHY. HEART SOUNDS IRREGULAR, HX AFIB, DENIES CP AT THIS TIME. LUNG SOUNDS DIMINISHED AND TIGHT, PT CURRENTLY ON 2L NC, ON OXYGEN AT HOME, DENIES SOB AT THIS TIME, PT STATES SHE IS HAVING AN EASIER TIMES BREATHING SINCE HER PROCEDURE. PT IS EXPECTED TO GO HOME IN THE AM. NO ACUTE EVENTS DURING THE NIGHT. PT SLEPT MOST OF THE NIGHT, CALL LIGHT IN REACH, BED IN LOWEST POSTION, WILL CONTINUE TO MONITOR UNTIL DAYSHIFT NURSE ARRIVES.
[2020-01-05 05:24] LABS: Bun/Creatinine Ratio 31.6 (12.0-20.0); Creatinine, Blood 1.17 mg/dL (0.40-1.00); Potassium, Blood 4.1 mmol/L (3.5-5.5)
--- NOTE | 2020-01-05 14:43 | NUR ---
PT DISCHARGED FROM THE UNIT. DISCHARGE INSTRUCTIONS REVIEWED. IV REMOVED. INSTRUCTED PT TO FOLLOW UP WITH PRIMARY CARE PROVIDER
== END 2020-01-05 14:08 | disposition home or self-care (01) | DRG 292 ==
LOC: ER 11:32 → MEDS 14:48 → ER 14:48 → MEDS 15:25
PROVIDERS: Emergency Medicine; Internal Medicine; Nurse Practitioner Acute Care; ADMIT Internal Medicine
PROC: 0W993ZZ Drainage of Right Pleural Cavity, Percutaneous Approach (ICD-10-PCS; principal; 2020-01-05)
DX: I11.0 Hypertensive heart disease with heart failure (principal); I48.20 Chronic atrial fibrillation, unspecified; J91.8 Pleural effusion in other conditions classified elsewhere; F11.20 Opioid dependence, uncomplicated; J96.10 Chronic respiratory failure, unspecified whether with hypoxia or hypercapnia; Z68.41 Body mass index [BMI] 40.0-44.9, adult; I50.42 Chronic combined systolic (congestive) and diastolic (congestive) heart failure; E11.42 Type 2 diabetes mellitus with diabetic polyneuropathy; Z79.4 Long term (current) use of insulin; G25.81 Restless legs syndrome; E66.01 Morbid (severe) obesity due to excess calories; E11.649 Type 2 diabetes mellitus with hypoglycemia without coma; G89.4 Chronic pain syndrome; Z99.81 Dependence on supplemental oxygen; Z87.440 Personal history of urinary (tract) infections
CPT/HCPCS: 32555; 36415; 71045; 80048; 80053; 81001; 82947; 83735; 83880; 85025; 85610; 93005; 93010; 99285-25; A9270-GY; G0378; J3430; P9612

== ENCOUNTER 2020-01-10 20:47 | Emergency (ER) | payer OTHER ==
[~2020-01-10] VITALS: Ht 160 cm; Wt 103.9 kg
[~2020-01-10 20:47] MED LIST changes: +CEPH500 PO; +EZETIMIBE10 MG PO
[2020-01-10 21:19] LABS: BASOPHILS ABSOLUTE AUTO 0.07 K/mm3 (0.00-0.23); BASOPHILS PERCENT AUTO 1 % (0-2); EOSINOPHILS ABSOLUTE AUTO 0.24 K/mm3 (0.00-0.68); EOSINOPHILS PERCENT AUTO 4 % (0-6); Hemoglobin 12.8 g/dL (11.5-16.0); IMMATURE GRAN ABSOLUTE AUTO 0.02 K/mm3 (0.00-0.10); IMMATURE GRAN PERCENT AUTO 0 % (0-1); LYMPHOCYTES ABSOLUTE AUTO 1.13 K/mm3 (0.84-5.20); LYMPHOCYTES PERCENT AUTO 17 % (21-46); MONOCYTES ABSOLUTE AUTO 0.55 K/mm3 (0.16-1.47); MONOCYTES PERCENT AUTO 8 % (4-13); Mean Corpuscular HGB 30.7 pg (26.0-34.0); NEUTROPHILS ABSOLUTE AUTO 4.61 K/mm3 (1.96-9.15); NEUTROPHILS PERCENT AUTO 70 % (41-73); RDW Coefficient Variation 14.3 % (11.7-14.2); RDW Standard Deviation 50.2 fL (35.1-46.3); Red Blood Cell Count 4.17 M/mm3 (3.80-5.20); White Blood Cell Count 6.62 K/mm3 (4.00-11.30)
[2020-01-10 21:21] LABS: Mean Corpuscular Volume 96 fL (80-100); Platelet Count 188 K/mm3 (150-400)
[2020-01-10 21:31] LABS: Albumin, Blood 2.9 g/dL (3.4-5.0); Albumin/Globulin Ratio 0.7 (0.8-1.8); Bilirubin, Total 0.5 mg/dL (0.1-1.0); Bun/Creatinine Ratio 45.6 (12.0-20.0); Calcium, Blood 10.3 mg/dL (8.5-10.1); Creatinine, Blood 1.49 mg/dL (0.40-1.00); Globulin, Blood 4.4 g/dL (2.2-4.0); Potassium, Blood 5.1 mmol/L (3.5-5.5); Total Protein, Blood 7.3 g/dL (6.4-8.2)
[2020-01-10 21:39] LABS: Source, Urine Catheter
[2020-01-10 21:41] LABS: Appearance, Urine Clear (Clear); Bilirubin, Urine Neg (Neg); Blood, Urine 4+ (Neg); Color, Urine Yellow (P-Yellow); Glucose Qualitative, Urine Neg (Neg); Ketones, Urine Neg (Neg); Leukocyte Esterase, Urine 2+ (Neg); Nitrite, Urine Neg (Neg); Protein, Urine Neg (Neg); Urobilinogen, Urine NORM (Normal)
[2020-01-10 21:47] LABS: Bacteria Many /hpf; Red Blood Cells, Urine 25-50 /hpf (0-2); Squamous Epithelial Cells Few /hpf (Few)
[2020-01-10 21:57] LABS: International Normalized Ratio 1.53
[2020-01-10] MEDS ORDERED: CEPH500 PO (22:25)
== END 2020-01-11 00:20 | disposition home or self-care (01) ==
LOC: ER 20:47
PROVIDERS: Emergency Medicine
DX: N39.0 Urinary tract infection, site not specified (principal); E86.0 Dehydration; E11.9 Type 2 diabetes mellitus without complications; I48.91 Unspecified atrial fibrillation; Z88.2 Allergy status to sulfonamides; Z88.1 Allergy status to other antibiotic agents; Z88.5 Allergy status to narcotic agent; Z88.8 Allergy status to other drugs, medicaments and biological substances; Z91.018 Allergy to other foods; Z79.899 Other long term (current) drug therapy; Z79.01 Long term (current) use of anticoagulants; Z79.4 Long term (current) use of insulin; Z87.442 Personal history of urinary calculi
CPT/HCPCS: 36415; 71045; 80053; 81001; 85025; 85610; 87077; 87086; 87186; 96365-59; 99285-25; J0696; J7030; P9612

== ENCOUNTER 2020-02-06 16:49 | Inpatient (IN) | payer OTHER ==
[~2020-02-06] VITALS: Ht 160 cm; Wt 105.7 kg
[2020-02-06 17:25] LABS: BASOPHILS ABSOLUTE AUTO 0.07 K/mm3 (0.00-0.23); BASOPHILS PERCENT AUTO 1 % (0-2); EOSINOPHILS ABSOLUTE AUTO 0.38 K/mm3 (0.00-0.68); EOSINOPHILS PERCENT AUTO 6 % (0-6); Hematocrit 36.1 % (33.0-51.0); Hemoglobin 11.5 g/dL (11.5-16.0); IMMATURE GRAN ABSOLUTE AUTO 0.01 K/mm3 (0.00-0.10); IMMATURE GRAN PERCENT AUTO 0 % (0-1); LYMPHOCYTES ABSOLUTE AUTO 1.46 K/mm3 (0.84-5.20); LYMPHOCYTES PERCENT AUTO 22 % (21-46); MONOCYTES PERCENT AUTO 9 % (4-13); Mean Corpuscular HGB 30.2 pg (26.0-34.0); Mean Corpuscular HGB Conc 31.9 g/dL (31.5-36.5); Mean Corpuscular Volume 95 fL (80-100); Mean Platelet Volume 9.6 fL (9.1-12.4); NEUTROPHILS ABSOLUTE AUTO 4.22 K/mm3 (1.96-9.15); NEUTROPHILS PERCENT AUTO 63 % (41-73); Platelet Count 186 K/mm3 (150-400); RDW Coefficient Variation 13.6 % (11.7-14.2); RDW Standard Deviation 47.3 fL (35.1-46.3); Red Blood Cell Count 3.81 M/mm3 (3.80-5.20); White Blood Cell Count 6.74 K/mm3 (4.00-11.30)
[2020-02-06 17:47] LABS: Troponin I <0.015 ng/mL (0.000-0.040)
[2020-02-06 17:54] LABS: Alanine Aminotransfer (ALT/SGP 26 U/L (12-78); Albumin/Globulin Ratio 0.7 (0.8-1.8); Alk Phos 219 U/L (50-136); Anion Gap 4 mmol/L (6-16); Aspartate Aminotrans (AST/SGOT 35 U/L (12-37); Bilirubin, Total 0.4 mg/dL (0.1-1.0); Blood Urea Nitrogen 107 mg/dL (8-24); Bun/Creatinine Ratio 46.1 (12.0-20.0); CO2, Blood 28 mmol/L (21-32); Calcium, Blood 9.8 mg/dL (8.5-10.1); Chloride, Blood 100 mmol/L (98-108); Creatinine, Blood 2.32 mg/dL (0.40-1.00); Globulin, Blood 4.3 g/dL (2.2-4.0); Glomerular Filtration Rate 22 (60-); Glucose, Blood 105 mg/dL (70-99); Potassium, Blood 7.4 mmol/L (3.5-5.5); Sodium, Blood 132 mmol/L (136-145); Total Protein, Blood 7.3 g/dL (6.4-8.2)
[2020-02-06 20:42] LABS: Source, Urine Catheter
[2020-02-06 20:46] LABS: Bilirubin, Urine Neg (Neg); Blood, Urine 5+ (Neg); Glucose Qualitative, Urine Neg (Neg); Ketones, Urine Neg (Neg); Leukocyte Esterase, Urine 1+ (Neg); Nitrite, Urine Neg (Neg); Protein, Urine Neg (Neg); Urobilinogen, Urine NORM (Normal)
[2020-02-06 20:54] LABS: Appearance, Urine Hazy (Clear); Color, Urine Yellow (P-Yellow)
[2020-02-06 20:55] LABS: Bacteria Many /hpf; Red Blood Cells, Urine TNTC /hpf (0-2); Squamous Epithelial Cells Not Seen /hpf (Few); White Blood Cells, Urine 25-50 /hpf (0-5)
[2020-02-06 22:25] LABS: Free Thyroxine 1.13 ng/dL (0.70-1.60)
[2020-02-06 22:28] LABS: Triiodothyronine, Free 2.75 pg/mL (2.18-3.98)
[2020-02-06 22:30] LABS: Albumin, Blood 3.2 g/dL (3.4-5.0); Anion Gap 3 mmol/L (6-16); Blood Urea Nitrogen 101 mg/dL (8-24); Bun/Creatinine Ratio 44.9 (12.0-20.0); CO2, Blood 32 mmol/L (21-32); Calcium, Blood 10.9 mg/dL (8.5-10.1); Chloride, Blood 100 mmol/L (98-108); Creatinine, Blood 2.25 mg/dL (0.40-1.00); Glomerular Filtration Rate 23 (60-); Glucose, Blood 102 mg/dL (70-99); Phosphorus, Blood 4.6 mg/dL (2.5-4.9); Potassium, Blood 6.2 mmol/L (3.5-5.5); Sodium, Blood 135 mmol/L (136-145)
[2020-02-06 23:49] LABS: International Normalized Ratio 2.34; Prothrombin Time Results 23.9 Sec (9.7-11.5)
[2020-02-07 04:08] LABS: BASOPHILS ABSOLUTE AUTO 0.05 K/mm3 (0.00-0.23); BASOPHILS PERCENT AUTO 1 % (0-2); EOSINOPHILS ABSOLUTE AUTO 0.11 K/mm3 (0.00-0.68); EOSINOPHILS PERCENT AUTO 2 % (0-6); Hematocrit 37.3 % (33.0-51.0); Hemoglobin 11.8 g/dL (11.5-16.0); IMMATURE GRAN ABSOLUTE AUTO 0.02 K/mm3 (0.00-0.10); IMMATURE GRAN PERCENT AUTO 0 % (0-1); LYMPHOCYTES ABSOLUTE AUTO 0.67 K/mm3 (0.84-5.20); LYMPHOCYTES PERCENT AUTO 9 % (21-46); MONOCYTES ABSOLUTE AUTO 0.54 K/mm3 (0.16-1.47); MONOCYTES PERCENT AUTO 7 % (4-13); Mean Corpuscular HGB 29.9 pg (26.0-34.0); Mean Corpuscular HGB Conc 31.6 g/dL (31.5-36.5); Mean Corpuscular Volume 95 fL (80-100); Mean Platelet Volume 9.6 fL (9.1-12.4); NEUTROPHILS PERCENT AUTO 81 % (41-73); Platelet Count 185 K/mm3 (150-400); RDW Coefficient Variation 13.4 % (11.7-14.2); RDW Standard Deviation 47.2 fL (35.1-46.3); Red Blood Cell Count 3.94 M/mm3 (3.80-5.20); White Blood Cell Count 7.49 K/mm3 (4.00-11.30)
[2020-02-07 04:28] LABS: Bun/Creatinine Ratio 48.8 (12.0-20.0); Calcium, Blood 10.3 mg/dL (8.5-10.1); Creatinine, Blood 2.01 mg/dL (0.40-1.00); Potassium, Blood 5.8 mmol/L (3.5-5.5)
--- NOTE | 2020-02-07 05:00 | NUR ---
ASSUMED CARE OF PATIENT AT [facility] 0025 FROM ED RN MCKENNA. PATIENT ARRIVED TO UNIT VIA STRETCHER; TRANSFER FROM ED TO PCU STRETCHER VIA SLIDE SHEET AND MAX STAFF ASSIST. PATIENT HUNCHED OVER IN BED AND REPORTS THAT HIS HOW SHE LIVES. PATIENT DENIES PAIN, NUMNBESS, TINGLING, DIZZINESS OR NAUSEA. PATIENT FORGETFUL; HARD OF HEARING AT TIMES. AFIB ON TELE W/ RATE OF 80-90'S; OXYGEN SATURATION ABOVE 90% ON 2.5 LPM VIA NC (BASELINE). IVF INFUSING PER ORDER. ADMISSION COMPLETE EXCEPT FOR MEDICATION REC; WILL PASS ONTO DAYSHIFT. PATIENT ONE ASSIST TO BEDSIDE COMMODE; ATTENDS IN PLACE. PATIENT CURRENTLY RESTING IN BED; CALL LIGHT IN REACH; BED IN LOWEST POSISTION; BED ALARM ON; WILL CONTINUE TO MONITOR AND ASSESS UNTIL END OF SHIFT.
[2020-02-07] MEDS ORDERED: ALLO100 PO (05:41)
[2020-02-07] MEDS ORDERED: Humalog100 UNIT/1 SC (05:42)
--- NOTE | 2020-02-07 06:46 | NUR ---
MED REC COMPLETED WITH SON LASHAY OVER THE PHONE. SISTER AVERY CALLED FOR UPDATE.
--- NOTE | 2020-02-07 07:42 | NUR ---
BLOOD REFUSAL SIGNED AND PLACED IN CHART
--- NOTE | 2020-02-07 18:29 | NUR ---
SHIFT NOTE PT HAS BEEN RESTING WELL IN BED T/O THE DAY. NO SOB OR CP REPORTED. PT UP TO BEDSIDE COMMODE W/O DIFF, WITH EVEN STEADY GAIT. PT ALERT, A LITTLE SLOW TO ANSWER QUESTIONS BUT ANSWERS QUESTIONS APPROPRIATELY. PT WITH GROSS BRUISING AND SWELLING FROM HER FALL PRIOR TO ADMIT, DENIES ANY PAIN TO FACE. AT THE END OF THE SHIFT PT UP TO BEDSIDE COMMODE AND BEGAN WITH AFIB IN THE 120s, PT REPORTS MILD SOB THAT RESOLVED WITH REPOSITIONING. DR LAYNE CALLED AND NEW ORDERS PLACED FOR CARDIZEM AND LOPRESSOR. CARDIZEM ORDERED PER HOME DOSE
[2020-02-08 04:10] LABS: BASOPHILS ABSOLUTE AUTO 0.05 K/mm3 (0.00-0.23); BASOPHILS PERCENT AUTO 1 % (0-2); EOSINOPHILS ABSOLUTE AUTO 0.29 K/mm3 (0.00-0.68); EOSINOPHILS PERCENT AUTO 5 % (0-6); Hematocrit 36.4 % (33.0-51.0); Hemoglobin 11.7 g/dL (11.5-16.0); IMMATURE GRAN ABSOLUTE AUTO 0.01 K/mm3 (0.00-0.10); IMMATURE GRAN PERCENT AUTO 0 % (0-1); LYMPHOCYTES ABSOLUTE AUTO 1.25 K/mm3 (0.84-5.20); LYMPHOCYTES PERCENT AUTO 23 % (21-46); MONOCYTES ABSOLUTE AUTO 0.57 K/mm3 (0.16-1.47); MONOCYTES PERCENT AUTO 10 % (4-13); Mean Corpuscular HGB 30.4 pg (26.0-34.0); Mean Corpuscular HGB Conc 32.1 g/dL (31.5-36.5); Mean Corpuscular Volume 95 fL (80-100); Mean Platelet Volume 9.6 fL (9.1-12.4); NEUTROPHILS ABSOLUTE AUTO 3.35 K/mm3 (1.96-9.15); NEUTROPHILS PERCENT AUTO 61 % (41-73); Platelet Count 170 K/mm3 (150-400); RDW Coefficient Variation 13.5 % (11.7-14.2); RDW Standard Deviation 47.1 fL (35.1-46.3); Red Blood Cell Count 3.85 M/mm3 (3.80-5.20); White Blood Cell Count 5.52 K/mm3 (4.00-11.30)
[2020-02-08 04:27] LABS: Bun/Creatinine Ratio 48.5 (12.0-20.0); Calcium, Blood 9.9 mg/dL (8.5-10.1); Creatinine, Blood 1.32 mg/dL (0.40-1.00); Potassium, Blood 4.9 mmol/L (3.5-5.5)
--- NOTE | 2020-02-08 06:22 | NUR ---
SHIFT SUMMARY PT SLEEPING IN RECLINER AT THIS TIME. NO ACUTE CHANGES IN STATUS T/O NIGHT. PT SLEPT WELL. RESP EVEN UNLABORED ON 2.5L NC WHICH IS HOME O2, W/ SATS >92%. PT DID HAVE NOSE BLEED ONCE DURING NIGHT. HUMIDIFER PLACED ON 02. PT DENIED ANY CP OR SOB. PT WAS ABLE TO AMBULATE W/ 4WW INTO RR W/ SBA. DENIED OTHER NEEDS. CALL LIGHT IN REACH.
--- NOTE | 2020-02-08 07:27 | NUR ---
ASSUMED PATIENT CARE. PATIENT SITTING COMFORTABLY IN RECLINER, CONVERSING WITH NURSING STAFF. NO SIGNS OF ACUTE DISTRESS, WCTM.
--- NOTE | 2020-02-08 15:34 | NUR ---
REPORT GIVEN TO [place] IN MEDICAL.
--- NOTE | 2020-02-08 16:32 | NUR ---
shift summary patient arrived to the unit via w/c. currently talking on the phone with family. Appears alert and oriented x3 with moments of confusion and unable to follow conversation. NO ACUTE ISSUES NOTED SINCE ARRIVING TO THE UNIT.
[2020-02-08 17:30] LABS: International Normalized Ratio 1.43
--- NOTE | 2020-02-09 01:40 | NUR ---
PT HAS NOT BEEN ABLE TO FALL ASLEEP AT ALL SO FAR. I ASKED PT WHAT WAS KEEPING HER UP TO WHICH SHE REPLIED WITH SHE WAS FEELING ANXIOUS TO GO HOME. I ASKED IF PT WANTED SOMETHING TO HELP HER SLEEP, PT AGREED. HOSPITALIST DR. JIMÉNEZ NOTIFIED. ATIVAN 0.5 MG PO X1 ORDERED.
--- NOTE | 2020-02-09 03:59 | NUR ---
COMMUNICATIONS ASSOCIATE SUMMARY PT A/O X4. COOPERATIVE AND PLEASANT. PT DID NOT SLEEP AFTER ATIVAN PO GIVEN. PT DID NOT RECIEVE SLEEP TONIGHT REGARDLESS OF LIGHTS HAVING BEEN SHUT OFF AND MED GIVEN. PT DOES NOT APPEAR ANXIOUS. DENIES PAIN, SOB. VSS. NO ACUTE CHANGES.
[2020-02-09 05:06] LABS: BASOPHILS ABSOLUTE AUTO 0.04 K/mm3 (0.00-0.23); BASOPHILS PERCENT AUTO 1 % (0-2); EOSINOPHILS ABSOLUTE AUTO 0.26 K/mm3 (0.00-0.68); EOSINOPHILS PERCENT AUTO 5 % (0-6); Hematocrit 36.8 % (33.0-51.0); Hemoglobin 11.8 g/dL (11.5-16.0); IMMATURE GRAN ABSOLUTE AUTO 0.01 K/mm3 (0.00-0.10); IMMATURE GRAN PERCENT AUTO 0 % (0-1); LYMPHOCYTES PERCENT AUTO 20 % (21-46); MONOCYTES ABSOLUTE AUTO 0.52 K/mm3 (0.16-1.47); MONOCYTES PERCENT AUTO 9 % (4-13); Mean Corpuscular HGB 30.5 pg (26.0-34.0); Mean Corpuscular HGB Conc 32.1 g/dL (31.5-36.5); Mean Corpuscular Volume 95 fL (80-100); Mean Platelet Volume 9.3 fL (9.1-12.4); NEUTROPHILS ABSOLUTE AUTO 3.65 K/mm3 (1.96-9.15); NEUTROPHILS PERCENT AUTO 65 % (41-73); Platelet Count 177 K/mm3 (150-400); RDW Coefficient Variation 13.5 % (11.7-14.2); RDW Standard Deviation 46.7 fL (35.1-46.3); Red Blood Cell Count 3.87 M/mm3 (3.80-5.20); White Blood Cell Count 5.58 K/mm3 (4.00-11.30)
[2020-02-09 05:24] LABS: Bun/Creatinine Ratio 35.8 (12.0-20.0); Creatinine, Blood 1.09 mg/dL (0.40-1.00); Potassium, Blood 4.5 mmol/L (3.5-5.5)
[2020-02-09 05:28] LABS: International Normalized Ratio 1.29; Prothrombin Time Results 13.6 Sec (9.7-11.5)
[2020-02-09] MEDS ORDERED: CEFU500T30 PO (11:54)
--- NOTE | 2020-02-09 15:34 | NUR ---
LATE ENTRY: DISCHARGE 1350: PER MD ORDERS, PATIENT READY FOR DISCHARGE. PRIOR TO DISCHARGE, DISCUSSED WITH DR. LAYNE THE POSITIVE RESULTS OF UA. PATIENT RECEIVED IV ANTIBIOTICS ORDERED TO BE GIVEN PRIOR TO DISCHARGE. PATIENT UP TO CHAIR FOR BREAKFAST. NO SOB NOTED WITH AMBULATION. PATIENT USED WALKER APPROPRIATELY. PATIENT WORE BRIEF, BUT ABLE TO GET TO THE BEDSIDE COMMODE WITH ASSISTANCE PRIOR TO ANY INCONTINENCE. MILD UREMIA NOTED IN URINE. PATIENT VOIDED FREQUENTLY AND SMALL AMOUNTS. PATIENT DISCHARGED WITH RN SO THAT EDUCATION AND DISCHARGE INSTRUCTIONS COULD BE PROVIDED TO PATIENT AND FAMILY. ALL QUESTIONS AND CONCERNS ADDRESSED. DISCHARGE RX FAXED TO [facility] PER PATIENT REQUEST. DISCHAGE INSTRUCTIONS AND RX FOR FOLLOW-UP BMP PROVIDED TO SONDILEEP. PATIENT STABLE AT TIME OF DISCHARGE.
== END 2020-02-09 13:42 | disposition home health service (06) | DRG 682 ==
LOC: ER 16:49 → PCU 23:29 → MEDS 02-08 15:42 → ENPENDDIS 02-09 10:00 → MEDS 02-09 13:42
PROVIDERS: Emergency Medicine; Hospitalist; Nurse Practitioner Acute Care; ADMIT Internal Medicine
DX: N17.9 Acute kidney failure, unspecified (principal); G92 Toxic encephalopathy; M19.90 Unspecified osteoarthritis, unspecified site; Z79.01 Long term (current) use of anticoagulants; E87.5 Hyperkalemia; I48.91 Unspecified atrial fibrillation; R29.6 Repeated falls; E11.9 Type 2 diabetes mellitus without complications; Z79.4 Long term (current) use of insulin
CPT/HCPCS: 36415; 70450; 71045; 72125; 80048; 80053; 80069; 81001; 82947; 83735; 84439; 84443; 84481; 84484; 85025; 85610; 87077; 87086; 87186; 93005; 93010; 96365; 96375; 97116; 97162; 99285-25; A9270; A9270-GY; J0696; J1815; J1940; J7030

== ENCOUNTER 2020-03-16 09:44 | Emergency (ER) | payer OTHER ==
[~2020-03-16] VITALS: Ht 160 cm; Wt 104.6 kg
[~2020-03-16 09:44] MED LIST changes: +ALLO100 PO; +BASAGLAR K100 UNIT/1 SC; +NOVOLOG FL100 UNIT/3 SC
[2020-03-16 10:16] LABS: BASOPHILS ABSOLUTE AUTO 0.07 K/mm3 (0.00-0.23); BASOPHILS PERCENT AUTO 1 % (0-2); EOSINOPHILS PERCENT AUTO 2 % (0-6); Hematocrit 40.8 % (33.0-51.0); Hemoglobin 12.2 g/dL (11.5-16.0); IMMATURE GRAN ABSOLUTE AUTO 0.01 K/mm3 (0.00-0.10); IMMATURE GRAN PERCENT AUTO 0 % (0-1); LYMPHOCYTES ABSOLUTE AUTO 0.77 K/mm3 (0.84-5.20); LYMPHOCYTES PERCENT AUTO 13 % (21-46); MONOCYTES ABSOLUTE AUTO 0.38 K/mm3 (0.16-1.47); MONOCYTES PERCENT AUTO 6 % (4-13); Mean Corpuscular HGB Conc 29.9 g/dL (31.5-36.5); Mean Corpuscular Volume 101 fL (80-100); Mean Platelet Volume 9.4 fL (9.1-12.4); NEUTROPHILS ABSOLUTE AUTO 4.57 K/mm3 (1.96-9.15); NEUTROPHILS PERCENT AUTO 77 % (41-73); Platelet Count 192 K/mm3 (150-400); RDW Coefficient Variation 14.4 % (11.7-14.2); RDW Standard Deviation 53.7 fL (35.1-46.3); Red Blood Cell Count 4.06 M/mm3 (3.80-5.20)
[2020-03-16 10:35] LABS: Alanine Aminotransfer (ALT/SGP 18 U/L (12-78); Albumin, Blood 3.2 g/dL (3.4-5.0); Albumin/Globulin Ratio 0.7 (0.8-1.8); Alk Phos 214 U/L (50-136); Anion Gap 2 mmol/L (6-16); Aspartate Aminotrans (AST/SGOT 29 U/L (12-37); Bilirubin, Total 1.1 mg/dL (0.1-1.0); Blood Urea Nitrogen 21 mg/dL (8-24); Bun/Creatinine Ratio 27.9 (12.0-20.0); CO2, Blood 39 mmol/L (21-32); Chloride, Blood 101 mmol/L (98-108); Creatinine, Blood 0.75 mg/dL (0.40-1.00); Globulin, Blood 4.6 g/dL (2.2-4.0); Glomerular Filtration Rate >60 (60-); Glucose, Blood 155 mg/dL (70-99); Potassium, Blood 4.3 mmol/L (3.5-5.5); Sodium, Blood 142 mmol/L (136-145); Total Protein, Blood 7.8 g/dL (6.4-8.2)
[2020-03-16 11:26] LABS: Source, Urine Catheter
[2020-03-16 11:32] LABS: Bilirubin, Urine Neg (Neg); Blood, Urine 5+ (Neg); Glucose Qualitative, Urine Neg (Neg); Ketones, Urine 3+ (Neg); Leukocyte Esterase, Urine 1+ (Neg); Nitrite, Urine Neg (Neg); Protein, Urine 2+ (Neg); Urobilinogen, Urine NORM (Normal)
[2020-03-16 11:52] LABS: Appearance, Urine Hazy (Clear); Color, Urine Yellow (P-Yellow)
[2020-03-16 11:53] LABS: Bacteria Rare /hpf; Red Blood Cells, Urine TNTC /hpf (0-2); Squamous Epithelial Cells Rare /hpf (Few)
[2020-03-16] MEDS ORDERED: Zithromax250 MG PO (12:47)
[2020-03-17] MEDS ORDERED: ALLOPURINOL100 M1 PO (18:43)
[2020-03-17] MEDS ORDERED: DILTIAZEM 24HR240 M3 PO (18:43)
[2020-03-17] MEDS ORDERED: ELIQUIS2.5 M1 PO (18:44)
[2020-03-17] MEDS ORDERED: METOPROLOL TART25 MG PO (18:44)
[2020-03-17] MEDS ORDERED: GABAPENTIN600 MG PO (18:44)
[2020-03-17] MEDS ORDERED: SPIRONOLACTONE25 MG PO (18:45)
[2020-03-17] MEDS ORDERED: Klor-Con 1010 MEQ PO (18:45)
[2020-03-17] MEDS ORDERED: TRAM50 PO (18:51)
== END 2020-03-16 14:57 | disposition home or self-care (01) ==
LOC: ER 09:44
PROVIDERS: Physician Assistant
DX: J18.9 Pneumonia, unspecified organism (principal); E11.9 Type 2 diabetes mellitus without complications; I48.91 Unspecified atrial fibrillation; I10 Essential (primary) hypertension; Z88.2 Allergy status to sulfonamides; Z88.8 Allergy status to other drugs, medicaments and biological substances; Z88.5 Allergy status to narcotic agent; Z91.018 Allergy to other foods; Z79.899 Other long term (current) drug therapy; Z79.4 Long term (current) use of insulin
CPT/HCPCS: 71045; 80053; 81001; 83690; 83880; 84484; 85025; 87077; 87086; 87186; 93005; 93010; 96365; 96375; 99285-25; J0456; J7050

== ENCOUNTER 2020-03-17 15:03 | Observation (INO) | payer OTHER ==
[~2020-03-17] VITALS: Ht 160 cm; Wt 99.7 kg
[~2020-03-17 15:03] MED LIST changes: +Zithromax250 MG PO
[2020-03-17 17:13] LABS: BASOPHILS ABSOLUTE AUTO 0.07 K/mm3 (0.00-0.23); BASOPHILS PERCENT AUTO 1 % (0-2); EOSINOPHILS ABSOLUTE AUTO 0.14 K/mm3 (0.00-0.68); EOSINOPHILS PERCENT AUTO 2 % (0-6); Hematocrit 40.7 % (33.0-51.0); Hemoglobin 12.4 g/dL (11.5-16.0); IMMATURE GRAN ABSOLUTE AUTO 0.02 K/mm3 (0.00-0.10); IMMATURE GRAN PERCENT AUTO 0 % (0-1); LYMPHOCYTES ABSOLUTE AUTO 1.11 K/mm3 (0.84-5.20); LYMPHOCYTES PERCENT AUTO 17 % (21-46); MONOCYTES PERCENT AUTO 9 % (4-13); Mean Corpuscular HGB 30.2 pg (26.0-34.0); Mean Corpuscular HGB Conc 30.5 g/dL (31.5-36.5); Mean Corpuscular Volume 99 fL (80-100); Mean Platelet Volume 9.6 fL (9.1-12.4); NEUTROPHILS ABSOLUTE AUTO 4.67 K/mm3 (1.96-9.15); NEUTROPHILS PERCENT AUTO 71 % (41-73); Platelet Count 231 K/mm3 (150-400); RDW Coefficient Variation 14.5 % (11.7-14.2); RDW Standard Deviation 52.4 fL (35.1-46.3); Red Blood Cell Count 4.11 M/mm3 (3.80-5.20); White Blood Cell Count 6.61 K/mm3 (4.00-11.30)
[2020-03-17 17:35] LABS: Alanine Aminotransfer (ALT/SGP 15 U/L (12-78); Albumin, Blood 3.4 g/dL (3.4-5.0); Albumin/Globulin Ratio 0.8 (0.8-1.8); Alk Phos 199 U/L (50-136); Anion Gap 4 mmol/L (6-16); Aspartate Aminotrans (AST/SGOT 26 U/L (12-37); Blood Urea Nitrogen 16 mg/dL (8-24); Bun/Creatinine Ratio 20.9 (12.0-20.0); CO2, Blood 38 mmol/L (21-32); Calcium, Blood 10.4 mg/dL (8.5-10.1); Chloride, Blood 98 mmol/L (98-108); Creatinine, Blood 0.76 mg/dL (0.40-1.00); Globulin, Blood 4.5 g/dL (2.2-4.0); Glomerular Filtration Rate >60 (60-); Glucose, Blood 140 mg/dL (70-99); Potassium, Blood 3.7 mmol/L (3.5-5.5); Sodium, Blood 140 mmol/L (136-145); Total Protein, Blood 7.9 g/dL (6.4-8.2)
[2020-03-17] MEDS ORDERED: DILTIAZEM 24HR240 M3 PO (18:43)
[2020-03-17] MEDS ORDERED: ALLOPURINOL100 M1 PO (18:43)
[2020-03-17] MEDS ORDERED: METOPROLOL TART25 MG PO (18:44)
[2020-03-17] MEDS ORDERED: ELIQUIS2.5 M1 PO (18:44)
[2020-03-17] MEDS ORDERED: GABAPENTIN600 MG PO (18:44)
[2020-03-17] MEDS ORDERED: SPIRONOLACTONE25 MG PO (18:45)
[2020-03-17] MEDS ORDERED: Klor-Con 1010 MEQ PO (18:45)
[2020-03-17] MEDS ORDERED: TRAM50 PO (18:51)
[2020-03-18 04:41] LABS: Hematocrit 40.7 % (33.0-51.0); Hemoglobin 12.4 g/dL (11.5-16.0); Mean Corpuscular HGB 30.6 pg (26.0-34.0); Mean Corpuscular HGB Conc 30.5 g/dL (31.5-36.5); Mean Corpuscular Volume 101 fL (80-100); Mean Platelet Volume 9.1 fL (9.1-12.4); Platelet Count 187 K/mm3 (150-400); RDW Coefficient Variation 14.6 % (11.7-14.2); RDW Standard Deviation 53.5 fL (35.1-46.3); Red Blood Cell Count 4.05 M/mm3 (3.80-5.20); White Blood Cell Count 6.74 K/mm3 (4.00-11.30)
[2020-03-18 05:00] LABS: Anion Gap 1 mmol/L (6-16); Blood Urea Nitrogen 17 mg/dL (8-24); Bun/Creatinine Ratio 19.5 (12.0-20.0); CO2, Blood 42 mmol/L (21-32); Chloride, Blood 98 mmol/L (98-108); Creatinine, Blood 0.87 mg/dL (0.40-1.00); Glomerular Filtration Rate >60 (60-); Glucose, Blood 143 mg/dL (70-99); Potassium, Blood 3.7 mmol/L (3.5-5.5); Sodium, Blood 141 mmol/L (136-145)
--- NOTE | 2020-03-18 06:05 | NUR ---
SHIFT SUMMARY AOX4. VSS. TELE RUNNING AFIB W/HR 78. DENIES PAIN OR N/V. REPORTS BREATHING IS BETTER THIS MORNING & SHE IS ABLE TO "TAKE A DEEP BREATH" WHERE SHE COULD NOT YESTERDAY. SPO2 >90% ON 3L O2 WHICH IS BASELINE. LUNGS SOUND DIM T/O. E/U RESPIRATIONS. PT SITTING UP IN BED SLOUCHED OVER W/CHIN TOUCHING CHEST, STATES SHE IS COMFORTABLE, HAS KYPHOSIS OF SPINE. PT IS CONTINENT/INCONTINENT OF URINE. UP 1 ASSIST TO BSC. CBG @HS WAS 135. CALL LIGHT IN REACH. WCTM.
[2020-03-18] MEDS ORDERED: BUME2 PO (16:59)
--- NOTE | 2020-03-18 17:30 | NUR ---
DISCHARGE INSTRUCTIONS COMPLETED AND DISCUSSED WITH PT EXPRESSING UNDERSTANDING. SCRIPT FAXED TO [facility]. TO [facility] VIA W/C.
== END 2020-03-18 17:19 | disposition home health service (06) ==
LOC: ER 15:03 → MEDS 15:04
PROVIDERS: Physician Assistant; ADMIT Internal Medicine
DX: I11.0 Hypertensive heart disease with heart failure (principal); I50.33 Acute on chronic diastolic (congestive) heart failure; E11.42 Type 2 diabetes mellitus with diabetic polyneuropathy; I48.91 Unspecified atrial fibrillation; G25.81 Restless legs syndrome; E66.01 Morbid (severe) obesity due to excess calories; Z88.5 Allergy status to narcotic agent; Z88.8 Allergy status to other drugs, medicaments and biological substances; Z88.2 Allergy status to sulfonamides; Z79.01 Long term (current) use of anticoagulants; Z79.4 Long term (current) use of insulin; Z79.899 Other long term (current) drug therapy
CPT/HCPCS: 36415; 71046; 80048; 80053; 82947; 83880; 85025; 85027; 93005; 93010; 96374; 97162; 97165; 97535; 99285-25; A9270; A9270-GY; G0378

== ENCOUNTER 2020-03-25 22:07 | Emergency (ER) | payer OTHER ==
[~2020-03-25] VITALS: Ht 162.6 cm; Wt 117.9 kg
[~2020-03-25 22:07] MED LIST changes: +DILTIAZEM 24HR240 M3 PO; +ELIQUIS2.5 M1 PO; +GABAPENTIN600 MG PO; +Klor-Con 1010 MEQ PO; +METOPROLOL TART25 MG PO; +SPIRONOLACTONE25 MG PO
[2020-03-25 22:40] LABS: Source, Urine Catheter
[2020-03-25 22:44] LABS: BASOPHILS ABSOLUTE AUTO 0.08 K/mm3 (0.00-0.23); BASOPHILS PERCENT AUTO 1 % (0-2); EOSINOPHILS ABSOLUTE AUTO 0.33 K/mm3 (0.00-0.68); EOSINOPHILS PERCENT AUTO 4 % (0-6); Hematocrit 40.2 % (33.0-51.0); Hemoglobin 12.6 g/dL (11.5-16.0); IMMATURE GRAN ABSOLUTE AUTO 0.02 K/mm3 (0.00-0.10); IMMATURE GRAN PERCENT AUTO 0 % (0-1); LYMPHOCYTES ABSOLUTE AUTO 1.35 K/mm3 (0.84-5.20); LYMPHOCYTES PERCENT AUTO 17 % (21-46); MONOCYTES ABSOLUTE AUTO 0.68 K/mm3 (0.16-1.47); MONOCYTES PERCENT AUTO 9 % (4-13); Mean Corpuscular HGB 30.4 pg (26.0-34.0); Mean Corpuscular HGB Conc 31.3 g/dL (31.5-36.5); Mean Platelet Volume 9.6 fL (9.1-12.4); NEUTROPHILS ABSOLUTE AUTO 5.42 K/mm3 (1.96-9.15); NEUTROPHILS PERCENT AUTO 69 % (41-73); Platelet Count 190 K/mm3 (150-400); RDW Coefficient Variation 13.9 % (11.7-14.2); RDW Standard Deviation 49.6 fL (35.1-46.3); Red Blood Cell Count 4.15 M/mm3 (3.80-5.20); White Blood Cell Count 7.88 K/mm3 (4.00-11.30)
[2020-03-25 22:45] LABS: Appearance, Urine Hazy (Clear); Bilirubin, Urine Neg (Neg); Blood, Urine 4+ (Neg); Color, Urine Yellow (P-Yellow); Glucose Qualitative, Urine Neg (Neg); Ketones, Urine Neg (Neg); Leukocyte Esterase, Urine 1+ (Neg); Nitrite, Urine Pos (Neg); Protein, Urine 1+ (Neg); Specific Gravity, Urine 1.015 (1.003-1.022); Urobilinogen, Urine NORM (Normal)
[2020-03-25 22:47] LABS: Mean Corpuscular Volume 97 fL (80-100)
[2020-03-25 22:54] LABS: White Blood Cells, Urine 50-100 /hpf (0-5)
[2020-03-25 22:55] LABS: Bacteria Many /hpf; Red Blood Cells, Urine TNTC /hpf (0-2); Squamous Epithelial Cells Few /hpf (Few)
[2020-03-25 22:56] LABS: Alanine Aminotransfer (ALT/SGP 18 U/L (12-78); Albumin, Blood 3.1 g/dL (3.4-5.0); Albumin/Globulin Ratio 0.7 (0.8-1.8); Alk Phos 208 U/L (50-136); Aspartate Aminotrans (AST/SGOT 46 U/L (12-37); Bilirubin, Total 0.5 mg/dL (0.1-1.0); Blood Urea Nitrogen 28 mg/dL (8-24); Bun/Creatinine Ratio 32.7 (12.0-20.0); Calcium, Blood 10.1 mg/dL (8.5-10.1); Chloride, Blood 90 mmol/L (98-108); Creatinine, Blood 0.86 mg/dL (0.40-1.00); Globulin, Blood 4.5 g/dL (2.2-4.0); Glomerular Filtration Rate >60 (60-); Glucose, Blood 149 mg/dL (70-99); Potassium, Blood 3.5 mmol/L (3.5-5.5); Sodium, Blood 138 mmol/L (136-145); Total Protein, Blood 7.6 g/dL (6.4-8.2)
[2020-03-25 23:00] LABS: Anion Gap Unable to Calculate mmol/L (6-16)
[2020-03-25 23:01] LABS: CO2, Blood >45 mmol/L (21-32)
[2020-03-25 23:34] LABS: PO2 Arterial 91.5 mmHg (80-100); pH Blood Arterial 7.44 (7.35-7.45)
[2020-03-25 23:35] LABS: PCO2 Arterial 72.6 mmHg (35-45)
[2020-03-25] MEDS ORDERED: CEFP200 PO (23:55)
== END 2020-03-26 00:51 | disposition home or self-care (01) ==
LOC: ER 22:07
PROVIDERS: Emergency Medicine
DX: N39.0 Urinary tract infection, site not specified (principal); J90 Pleural effusion, not elsewhere classified; I11.0 Hypertensive heart disease with heart failure; I50.22 Chronic systolic (congestive) heart failure; E11.9 Type 2 diabetes mellitus without complications; I48.91 Unspecified atrial fibrillation; Z88.2 Allergy status to sulfonamides; Z88.8 Allergy status to other drugs, medicaments and biological substances; Z88.5 Allergy status to narcotic agent; Z79.899 Other long term (current) drug therapy; Z79.4 Long term (current) use of insulin; Z79.01 Long term (current) use of anticoagulants
CPT/HCPCS: 36600; 71045; 80053; 81001; 82803; 85025; 87077; 87086; 87186; 93005; 93010; 96365; 99285-25; J0696; P9612

== ENCOUNTER 2020-05-16 11:55 | Inpatient (IN) | payer OTHER ==
[~2020-05-16] VITALS: Ht 157.5 cm; Wt 99.0 kg
[~2020-05-16 11:55] MED LIST changes: +CEFP200 PO
[2020-05-16 12:15] LABS: Base Excess Venous 18.1 mmol/L; Bicarbonate Venous 38.6 mmol/L (24.0-30.0); PO2 Venous 151 mmHg (38-42); pH Blood Venous 7.38 (7.34-7.37)
[2020-05-16 12:29] LABS: BASOPHILS ABSOLUTE AUTO 0.06 K/mm3 (0.00-0.23); BASOPHILS PERCENT AUTO 1 % (0-2); EOSINOPHILS ABSOLUTE AUTO 0.15 K/mm3 (0.00-0.68); EOSINOPHILS PERCENT AUTO 2 % (0-6); Hematocrit 39.4 % (33.0-51.0); IMMATURE GRAN ABSOLUTE AUTO 0.01 K/mm3 (0.00-0.10); IMMATURE GRAN PERCENT AUTO 0 % (0-1); LYMPHOCYTES ABSOLUTE AUTO 0.97 K/mm3 (0.84-5.20); LYMPHOCYTES PERCENT AUTO 13 % (21-46); MONOCYTES ABSOLUTE AUTO 0.58 K/mm3 (0.16-1.47); MONOCYTES PERCENT AUTO 8 % (4-13); Mean Corpuscular HGB 29.7 pg (26.0-34.0); Mean Corpuscular HGB Conc 30.5 g/dL (31.5-36.5); Mean Corpuscular Volume 98 fL (80-100); Mean Platelet Volume 9.2 fL (9.1-12.4); NEUTROPHILS ABSOLUTE AUTO 5.95 K/mm3 (1.96-9.15); NEUTROPHILS PERCENT AUTO 77 % (41-73); Platelet Count 183 K/mm3 (150-400); RDW Coefficient Variation 13.3 % (11.7-14.2); RDW Standard Deviation 47.3 fL (35.1-46.3); Red Blood Cell Count 4.04 M/mm3 (3.80-5.20); White Blood Cell Count 7.72 K/mm3 (4.00-11.30)
[2020-05-16 12:45] LABS: Alanine Aminotransfer (ALT/SGP 13 U/L (12-78); Albumin, Blood 2.9 g/dL (3.4-5.0); Albumin/Globulin Ratio 0.7 (0.8-1.8); Alk Phos 197 U/L (50-136); Anion Gap 0 mmol/L (6-16); Aspartate Aminotrans (AST/SGOT 37 U/L (12-37); Bilirubin, Total 0.4 mg/dL (0.1-1.0); Blood Urea Nitrogen 23 mg/dL (8-24); Bun/Creatinine Ratio 25.5 (12.0-20.0); CO2, Blood 43 mmol/L (21-32); Calcium, Blood 9.1 mg/dL (8.5-10.1); Chloride, Blood 98 mmol/L (98-108); Globulin, Blood 4.3 g/dL (2.2-4.0); Glomerular Filtration Rate >60 (60-); Glucose, Blood 245 mg/dL (70-99); Potassium, Blood 3.6 mmol/L (3.5-5.5); Sodium, Blood 141 mmol/L (136-145); Total Protein, Blood 7.2 g/dL (6.4-8.2); Troponin I <0.015 ng/mL (0.000-0.040)
[2020-05-16 14:03] LABS: Source, Urine Catheter
[2020-05-16 14:06] LABS: Bilirubin, Urine Neg (Neg); Blood, Urine 4+ (Neg); Glucose Qualitative, Urine Neg (Neg); Ketones, Urine Neg (Neg); Leukocyte Esterase, Urine Neg (Neg); Nitrite, Urine Neg (Neg); Protein, Urine 2+ (Neg); Specific Gravity, Urine 1.015 (1.003-1.022); Urobilinogen, Urine NORM (Normal)
[2020-05-16 14:16] LABS: Appearance, Urine Hazy (Clear); Color, Urine Yellow (P-Yellow); White Blood Cells, Urine Not Seen /hpf (0-5)
[2020-05-16 14:17] LABS: Bacteria Few /hpf; Red Blood Cells, Urine TNTC /hpf (0-2); Squamous Epithelial Cells Mod /hpf (Few)
--- NOTE | 2020-05-16 17:00 | NUR ---
PT TO U 1634 SHE IS ALERT AND ORIENTED X 4, ALTHOUGH, SHE STATES SHE IS QUITE TIRED. SHE WAS ON 5L NC, SAT'ING 93% AND WITH STABLE VITALS ALL AROUND - BUT DUE TO HER LETHARGY THE RT SWITCHED HER OVER TO BIPAP 26/05 WITH BACK UP RATE OF 14. SHE IS TOLERATING IT WELL, ALTHOUGH WITH HER SEVERE KYPHOSIS, AND ORTHOPNEA SHE SITS UP, LEANS FORWARD SLIGHTLY, AND HUNCHES HER NECK SO HER FACE ALMOST FACES THE BED. WE HAVE A ROLLED UP TOWELL UNDER HER CHIN HELPING KEEP THAT MASK FROM RIDING UP HER FACE. SHE DENIES CP, SOB (AT REST), NAUSEA AND ANY DISCOMFORT AT THE MOMENT. BED IS LOW AND LOCKED. CALL LIGHT WITHIN REACH.
--- NOTE | 2020-05-16 19:27 | NUR ---
SHIFT SUMMARY PT BACK ON 5L NC, SHE IS MORE AWAKE, AND THE BIPAP MASK WASN'T FITTING PROPERLY WITHOUT LOOKING VERY UNCOMFORTABLY. SHE WAS ABLE TO SWALLOW ICE WATER JUST FINE, SO WHEN SHE WAS MORE AWAKE I GAVE HER THE POTASSIUM TABLET. SHE REMAINS ALERT AND ORIENTED X 4. BED IS LOW AND LOCKED. CALL LIGHT WITHIN REACH.
[2020-05-17 04:02] LABS: BASOPHILS ABSOLUTE AUTO 0.06 K/mm3 (0.00-0.23); BASOPHILS PERCENT AUTO 1 % (0-2); EOSINOPHILS ABSOLUTE AUTO 0.17 K/mm3 (0.00-0.68); EOSINOPHILS PERCENT AUTO 3 % (0-6); Hematocrit 38.1 % (33.0-51.0); Hemoglobin 11.3 g/dL (11.5-16.0); IMMATURE GRAN ABSOLUTE AUTO 0.01 K/mm3 (0.00-0.10); IMMATURE GRAN PERCENT AUTO 0 % (0-1); LYMPHOCYTES ABSOLUTE AUTO 1.08 K/mm3 (0.84-5.20); LYMPHOCYTES PERCENT AUTO 18 % (21-46); MONOCYTES ABSOLUTE AUTO 0.65 K/mm3 (0.16-1.47); MONOCYTES PERCENT AUTO 11 % (4-13); Mean Corpuscular HGB Conc 29.7 g/dL (31.5-36.5); Mean Corpuscular Volume 98 fL (80-100); Mean Platelet Volume 9.4 fL (9.1-12.4); NEUTROPHILS ABSOLUTE AUTO 3.97 K/mm3 (1.96-9.15); NEUTROPHILS PERCENT AUTO 67 % (41-73); Platelet Count 165 K/mm3 (150-400); RDW Coefficient Variation 13.4 % (11.7-14.2); RDW Standard Deviation 47.7 fL (35.1-46.3); White Blood Cell Count 5.94 K/mm3 (4.00-11.30)
[2020-05-17 04:15] LABS: International Normalized Ratio 1.1; Prothrombin Time Results 11.7 Sec (9.7-11.5)
[2020-05-17 04:24] LABS: Alanine Aminotransfer (ALT/SGP 13 U/L (12-78); Albumin, Blood 2.8 g/dL (3.4-5.0); Albumin/Globulin Ratio 0.7 (0.8-1.8); Alk Phos 190 U/L (50-136); Anion Gap 3 mmol/L (6-16); Aspartate Aminotrans (AST/SGOT 25 U/L (12-37); Bilirubin, Total 0.5 mg/dL (0.1-1.0); Blood Urea Nitrogen 23 mg/dL (8-24); Bun/Creatinine Ratio 24.4 (12.0-20.0); CO2, Blood 41 mmol/L (21-32); Calcium, Blood 9.5 mg/dL (8.5-10.1); Chloride, Blood 97 mmol/L (98-108); Creatinine, Blood 0.94 mg/dL (0.40-1.00); Globulin, Blood 4.1 g/dL (2.2-4.0); Glomerular Filtration Rate >60 (60-); Glucose, Blood 155 mg/dL (70-99); Magnesium, Blood 1.6 mg/dL (1.6-2.4); Potassium, Blood 3.4 mmol/L (3.5-5.5); Sodium, Blood 141 mmol/L (136-145); Total Protein, Blood 6.9 g/dL (6.4-8.2)
--- NOTE | 2020-05-17 05:24 | NUR ---
END OF SHIFT SUMMARY NO ACUTE CHANGES THIS SHIFT. VSS. PT TITRTED DOWN TO 3LNC VERSUS 5 AT BEGINNING OIF SHIFT. WHEN SLEEPING, PT ON BIPAP, TOLERATING WELL BUT PT'S FACIAL STRUCTURE AND KYPHOSIS MAKE MAINTAINING GOOD SEAL DIFFICULTY. PT'S BAZAN PATENT AN DRAINING TO GRAVITY. AFIB 80'S. R LUNG SOUNDS NOTICEABLY DIMMER THAN LEFT. CBG'S CHANGED FROM Q2 TO Q4HR DUE TO GLUCOSE LEVELS BEING STABLE >140. D10 GTT CONTINUING TPO INFUSE. WILL CONTINUE TO MONITOR UNITL SHIFT CHANGE.
--- NOTE | 2020-05-17 10:49 | NUR ---
AM NOTE. PT IS A/O AND COOP WITH CARE. PT IS TOLERATING NC AT 3L. PO INTAKE W/O DISTRESS. PT FEEDING SELF. PT IS SETTING UP AND MOVING TO POSITION OF COMFORT.
--- NOTE | 2020-05-17 14:43 | NUR ---
PARACENTESIS SITE CONT TO LELIA MACK. BANDAID CHANGED AND WILL FOLLOW.
--- NOTE | 2020-05-17 14:47 | NUR ---
PT HAS BEEN SLEEPING WELL AND DENIES ANY DISTRESS W/O BIPAP OFF. REMAINS ON NC AT 3L.
--- NOTE | 2020-05-17 17:03 | NUR ---
PT RESP STATUS HAS BEEN MANNAGED WITH DIURETICS AND NC O2. PT DENIES DECLINE IN RESP STATUS. I/O NOTED. D-10 D/C, SEE CBG'S. PT HAS REMAINED A/O PLEASANT THIS SHIFT. NO DISTRESS WITH PO INTAKE.
[2020-05-18 04:12] LABS: Anion Gap 3 mmol/L (6-16); Blood Urea Nitrogen 19 mg/dL (8-24); Bun/Creatinine Ratio 22.8 (12.0-20.0); CO2, Blood 43 mmol/L (21-32); Calcium, Blood 9.9 mg/dL (8.5-10.1); Chloride, Blood 95 mmol/L (98-108); Creatinine, Blood 0.84 mg/dL (0.40-1.00); Glomerular Filtration Rate >60 (60-); Glucose, Blood 159 mg/dL (70-99); Potassium, Blood 3.5 mmol/L (3.5-5.5); Sodium, Blood 141 mmol/L (136-145)
--- NOTE | 2020-05-18 05:43 | NUR ---
END OF SHIFT SUMMARY NO ACUTE CHANGES THIS SHIFT. VSS. REMAINS ON 3LNC. HAS NOT PRESENTED LETHARGIC/CONFUSED THIS SHIFT. TOLERATED BIPAP FOR A LITTLE WHILE BUT THEN HASN'T. HAS REMAINED PREDOMINANTLY ON NC. REMAINS IN AFIB CONTROLLED 70'S TO 90'S HR. PT BEING TURNED BY STAFF. HORTENSIA PATENT. R SIDE LUNGS MUCH DIMMER THAN LEFT BUT LUNGS DIM T/O. PT BEING REPOSITIONED BY STAFF. WILL CONTINUE TO MONITOR UNTIL SHIFT CHANGE.
--- NOTE | 2020-05-18 08:10 | NUR ---
ASSUMED CARE AT 0700, REPORT FROM IDA OLIVARES. SITTING IN BED IN HIGH FOWLERS, A/A/OX, VIA NC AT 2L. BAZAN IN PLACE DRAINING CLEAR YELLOW URINE.
--- NOTE | 2020-05-18 18:20 | NUR ---
SHIFT SUMMARY; A/A/OX4 DURING SHIFT, REMAINS ON 3L VIA NC. THOROCENTESIS TODAY WITH 1400ML REMOVED, TOLERATED WELL. BAZAN IN PLACE DRAINING CLEAR YELLOW URINE. POSSIBLE DC TOMORROW WITH HOMEHEALTH. WILL CONTINUE TO MONITOR AND TREAT UNTIL CHANGE OF SHIFT.
[2020-05-19 04:51] LABS: Bun/Creatinine Ratio 21.5 (12.0-20.0); Calcium, Blood 9.7 mg/dL (8.5-10.1); Creatinine, Blood 0.98 mg/dL (0.40-1.00); Potassium, Blood 3.6 mmol/L (3.5-5.5)
--- NOTE | 2020-05-19 05:13 | NUR ---
END OF SHIFT SUMMARY NO ACUTE CHANGES THIS SHIFT. VSS. PT HAD TO <8SEC INSTANCES WHERE HER HR EDDIE >160. RESOLVED W/OUT INTERVENTION. PT REMAINS ON 3LNC. PT BEING REPOSITIONED BY STAFF. HAS BEEN UP AND CAT TO BSC WITH MINIAL ASSISTANCE. BAZAN REMAINS PATENT AND DRAINING. HAS PRESENTED W/OUT ANY INSTANCES OF LETHARGY/CONFUSION. PT IS EAGER TO TO BE DC'D. FAMILY UPDATED ON CONDITION WHEN CALLED. CBG REMAINS STABLE. THORACENTESIS SITE CLEAN AND DRY AND LETI. LUNG SOUNDS LESS DIM FROM LAST NOC SHIFT. WILL CONTINUE TO MONITOR UNTIL SHIFT CHANGE.
--- NOTE | 2020-05-19 10:01 | NUR ---
BAZAN TUBING CLAMPED TO START BLADDER TRAINING WITH VIEW TO D/C BAZAN TODAY.
[2020-05-19] MEDS ORDERED: ALLO100 PO ×2 (11:21→11:22)
[2020-05-19] MEDS ORDERED: CYCL10 PO (11:26)
[2020-05-19] MEDS ORDERED: SPIR25 PO (11:33)
--- NOTE | 2020-05-19 13:54 | NUR ---
This morning, the patient was oriented to person, and also to date; however, she thought that she was in a mobile home. She was reoriented to place. Two hours later, she was completely alert and oriented, able to recall the description of Dr. Beltran who had seen her earlier, and that she was in [facility]. She is often sleepy, and takes frequent naps. I spoke on the phone with both of her sisters, and updated them on the patient's condition, and when I spoke with Ida I also told her that the pt will be discharged today with home health, and that our digital sales planner was coordinating discharge with Oliver Foster heel caser.
--- NOTE | 2020-05-19 15:49 | NUR ---
Called Edgar to notify him of pt's discharge. He said that he was calling Pramod because he is in town and will come and pick the pt up for taking her home. The pt is calling her sister at this time. Discharge instructions were reviewed with the patient. She is cheerful, pleasant and seems happy to go home today. Vivi mart'miguel, STACY mart'miguel. Waiting on arrival of son.
== END 2020-05-19 17:10 | disposition home health service (06) | DRG 291 ==
LOC: ER 11:55 → PCU 15:00
PROVIDERS: Emergency Medicine; Family Medicine; Nurse Practitioner Acute Care; ADMIT Internal Medicine
PROC: 5A09357 Assistance with Respiratory Ventilation, Less than 24 Consecutive Hours, Continuous Positive Airway Pressure (ICD-10-PCS; principal; 2020-05-16)
PROC: 0W993ZZ Drainage of Right Pleural Cavity, Percutaneous Approach (ICD-10-PCS; 2020-05-18)
DX: I11.0 Hypertensive heart disease with heart failure (principal); J96.01 Acute respiratory failure with hypoxia; G92 Toxic encephalopathy; J96.02 Acute respiratory failure with hypercapnia; N25.81 Secondary hyperparathyroidism of renal origin; I48.20 Chronic atrial fibrillation, unspecified; Z68.41 Body mass index [BMI] 40.0-44.9, adult; Z20.828 Contact with and (suspected) exposure to other viral communicable diseases; I50.33 Acute on chronic diastolic (congestive) heart failure; Z79.4 Long term (current) use of insulin; M19.90 Unspecified osteoarthritis, unspecified site; E66.01 Morbid (severe) obesity due to excess calories; E11.649 Type 2 diabetes mellitus with hypoglycemia without coma; E78.5 Hyperlipidemia, unspecified; E87.6 Hypokalemia; R40.2412 Glasgow coma scale score 13-15, at arrival to emergency department
CPT/HCPCS: 32555; 36415; 51702; 71045; 80048; 80053; 81001; 82803; 82947; 83036; 83735; 83880; 84484; 85025; 85610; 93005; 93010; 94660; 94762; 96361; 96374; 97110; 97116; 97162; 97166; 97530; 97535; 99285-25; A9270-GY; J7030; U0002

== ENCOUNTER 2020-06-10 16:15 | Emergency (ER) | payer OTHER ==
[~2020-06-10] VITALS: Ht 160 cm; Wt 99.3 kg
[~2020-06-10 16:15] MED LIST changes: +CYCL10 PO; +Lopressor 25 mg25 MG PO; -METOPROLOL TART25 MG PO
[2020-06-10 17:53] LABS: BASOPHILS ABSOLUTE AUTO 0.04 K/mm3 (0.00-0.23); BASOPHILS PERCENT AUTO 1 % (0-2); EOSINOPHILS ABSOLUTE AUTO 0.22 K/mm3 (0.00-0.68); EOSINOPHILS PERCENT AUTO 4 % (0-6); Hematocrit 39.1 % (33.0-51.0); Hemoglobin 11.8 g/dL (11.5-16.0); IMMATURE GRAN ABSOLUTE AUTO 0.01 K/mm3 (0.00-0.10); IMMATURE GRAN PERCENT AUTO 0 % (0-1); LYMPHOCYTES ABSOLUTE AUTO 0.97 K/mm3 (0.84-5.20); LYMPHOCYTES PERCENT AUTO 17 % (21-46); MONOCYTES ABSOLUTE AUTO 0.46 K/mm3 (0.16-1.47); MONOCYTES PERCENT AUTO 8 % (4-13); Mean Corpuscular HGB Conc 30.2 g/dL (31.5-36.5); Mean Corpuscular Volume 96 fL (80-100); Mean Platelet Volume 9.5 fL (9.1-12.4); NEUTROPHILS ABSOLUTE AUTO 4.09 K/mm3 (1.96-9.15); NEUTROPHILS PERCENT AUTO 71 % (41-73); Platelet Count 183 K/mm3 (150-400); RDW Coefficient Variation 13.5 % (11.7-14.2); RDW Standard Deviation 47.8 fL (35.1-46.3); Red Blood Cell Count 4.07 M/mm3 (3.80-5.20); White Blood Cell Count 5.79 K/mm3 (4.00-11.30)
[2020-06-10 18:14] LABS: Alanine Aminotransfer (ALT/SGP 17 U/L (12-78); Albumin, Blood 3.1 g/dL (3.4-5.0); Albumin/Globulin Ratio 0.7 (0.8-1.8); Alk Phos 225 U/L (50-136); Anion Gap 1 mmol/L (6-16); Aspartate Aminotrans (AST/SGOT 29 U/L (12-37); Bilirubin, Total 0.6 mg/dL (0.1-1.0); Blood Urea Nitrogen 31 mg/dL (8-24); Bun/Creatinine Ratio 33.1 (12.0-20.0); CO2, Blood 43 mmol/L (21-32); Calcium, Blood 10.2 mg/dL (8.5-10.1); Chloride, Blood 94 mmol/L (98-108); Creatinine, Blood 0.94 mg/dL (0.40-1.00); Globulin, Blood 4.5 g/dL (2.2-4.0); Glomerular Filtration Rate >60 (60-); Glucose, Blood 159 mg/dL (70-99); Potassium, Blood 3.5 mmol/L (3.5-5.5); Sodium, Blood 138 mmol/L (136-145); Total Protein, Blood 7.6 g/dL (6.4-8.2)
[2020-06-10 19:09] LABS: Source, Urine Catheter
[2020-06-10 19:13] LABS: Appearance, Urine Hazy (Clear); Bilirubin, Urine Neg (Neg); Blood, Urine 5+ (Neg); Color, Urine Yellow (P-Yellow); Glucose Qualitative, Urine Neg (Neg); Ketones, Urine Neg (Neg); Leukocyte Esterase, Urine Neg (Neg); Nitrite, Urine Neg (Neg); Protein, Urine Neg (Neg); Specific Gravity, Urine 1.015 (1.003-1.022); Urobilinogen, Urine NORM (Normal)
[2020-06-10 19:25] LABS: White Blood Cells, Urine 0-2 /hpf (0-5)
[2020-06-10 19:26] LABS: Bacteria Rare /hpf; Red Blood Cells, Urine 50-100 /hpf (0-2); Squamous Epithelial Cells Rare /hpf (Few)
[2020-06-11] MEDS ORDERED: KEFLEX500 MG PO (19:29)
[2020-06-11] MEDS ORDERED: DOK100 M2 PO (19:31)
== END 2020-06-10 22:25 | disposition home or self-care (01) ==
LOC: ER 16:15
PROVIDERS: Emergency Medicine
DX: R10.84 Generalized abdominal pain (principal); Z88.2 Allergy status to sulfonamides; Z88.5 Allergy status to narcotic agent; Z88.8 Allergy status to other drugs, medicaments and biological substances; Z91.018 Allergy to other foods; Z79.899 Other long term (current) drug therapy; I13.0 Hypertensive heart and chronic kidney disease with heart failure and stage 1 through stage 4 chronic kidney disease, or unspecified chronic kidney disease; N18.9 Chronic kidney disease, unspecified; I50.20 Unspecified systolic (congestive) heart failure; E11.22 Type 2 diabetes mellitus with diabetic chronic kidney disease; I48.91 Unspecified atrial fibrillation; Z87.01 Personal history of pneumonia (recurrent)
CPT/HCPCS: 51701; 80053; 81001; 82947; 83690; 85025; 93005; 93010; 99284-25

== ENCOUNTER 2020-06-11 14:42 | Inpatient (IN) | payer OTHER ==
[~2020-06-11] VITALS: Ht 157.5 cm; Wt 98.4 kg
[2020-06-11 15:35] LABS: Bilirubin, Urine Neg (Neg); Blood, Urine 5+ (Neg); Glucose Qualitative, Urine Neg (Neg); Ketones, Urine Neg (Neg); Leukocyte Esterase, Urine 1+ (Neg); Nitrite, Urine Neg (Neg); Protein, Urine Neg (Neg); Source, Urine Catheter; Specific Gravity, Urine 1.015 (1.003-1.022); Urobilinogen, Urine NORM (Normal)
[2020-06-11 15:51] LABS: Appearance, Urine Clear (Clear); Color, Urine Yellow (P-Yellow)
[2020-06-11 15:52] LABS: Red Blood Cells, Urine TNTC /hpf (0-2)
[2020-06-11 15:53] LABS: Bacteria Few /hpf; Squamous Epithelial Cells Few /hpf (Few)
[2020-06-11 19:00] LABS: PCO2 Arterial 82.2 mmHg (35-45); PO2 Arterial 72.4 mmHg (80-100); pH Blood Arterial 7.38 (7.35-7.45)
[2020-06-11] MEDS ORDERED: KEFLEX500 MG PO (19:29)
[2020-06-11] MEDS ORDERED: DOK100 M2 PO (19:31)
[2020-06-11 23:30] LABS: BASOPHILS ABSOLUTE AUTO 0.05 K/mm3 (0.00-0.23); BASOPHILS PERCENT AUTO 1 % (0-2); EOSINOPHILS ABSOLUTE AUTO 0.12 K/mm3 (0.00-0.68); EOSINOPHILS PERCENT AUTO 2 % (0-6); Hematocrit 39.9 % (33.0-51.0); Hemoglobin 11.9 g/dL (11.5-16.0); IMMATURE GRAN ABSOLUTE AUTO 0.01 K/mm3 (0.00-0.10); IMMATURE GRAN PERCENT AUTO 0 % (0-1); LYMPHOCYTES PERCENT AUTO 18 % (21-46); MONOCYTES ABSOLUTE AUTO 0.39 K/mm3 (0.16-1.47); MONOCYTES PERCENT AUTO 6 % (4-13); Mean Corpuscular HGB 28.4 pg (26.0-34.0); Mean Corpuscular HGB Conc 29.8 g/dL (31.5-36.5); Mean Corpuscular Volume 95 fL (80-100); Mean Platelet Volume 9.3 fL (9.1-12.4); NEUTROPHILS ABSOLUTE AUTO 4.43 K/mm3 (1.96-9.15); NEUTROPHILS PERCENT AUTO 73 % (41-73); Platelet Count 187 K/mm3 (150-400); RDW Coefficient Variation 13.5 % (11.7-14.2); RDW Standard Deviation 47.2 fL (35.1-46.3); Red Blood Cell Count 4.19 M/mm3 (3.80-5.20)
[2020-06-11 23:53] LABS: Alanine Aminotransfer (ALT/SGP 16 U/L (12-78); Albumin, Blood 3.2 g/dL (3.4-5.0); Albumin/Globulin Ratio 0.7 (0.8-1.8); Alk Phos 206 U/L (50-136); Anion Gap 5 mmol/L (6-16); Aspartate Aminotrans (AST/SGOT 26 U/L (12-37); Bilirubin, Total 0.8 mg/dL (0.1-1.0); Blood Urea Nitrogen 25 mg/dL (8-24); Bun/Creatinine Ratio 27.7 (12.0-20.0); CO2, Blood 42 mmol/L (21-32); Calcium, Blood 10.4 mg/dL (8.5-10.1); Chloride, Blood 94 mmol/L (98-108); Globulin, Blood 4.5 g/dL (2.2-4.0); Glomerular Filtration Rate >60 (60-); Glucose, Blood 116 mg/dL (70-99); Potassium, Blood 3.5 mmol/L (3.5-5.5); Sodium, Blood 141 mmol/L (136-145); Total Protein, Blood 7.7 g/dL (6.4-8.2)
[2020-06-12 04:19] LABS: BASOPHILS ABSOLUTE AUTO 0.04 K/mm3 (0.00-0.23); BASOPHILS PERCENT AUTO 1 % (0-2); EOSINOPHILS ABSOLUTE AUTO 0.11 K/mm3 (0.00-0.68); EOSINOPHILS PERCENT AUTO 2 % (0-6); Hematocrit 37.6 % (33.0-51.0); Hemoglobin 11.4 g/dL (11.5-16.0); IMMATURE GRAN ABSOLUTE AUTO 0.02 K/mm3 (0.00-0.10); IMMATURE GRAN PERCENT AUTO 0 % (0-1); LYMPHOCYTES ABSOLUTE AUTO 0.97 K/mm3 (0.84-5.20); LYMPHOCYTES PERCENT AUTO 17 % (21-46); MONOCYTES ABSOLUTE AUTO 0.42 K/mm3 (0.16-1.47); MONOCYTES PERCENT AUTO 7 % (4-13); Mean Corpuscular HGB 28.9 pg (26.0-34.0); Mean Corpuscular HGB Conc 30.3 g/dL (31.5-36.5); Mean Corpuscular Volume 95 fL (80-100); Mean Platelet Volume 9.4 fL (9.1-12.4); NEUTROPHILS PERCENT AUTO 73 % (41-73); Platelet Count 169 K/mm3 (150-400); RDW Coefficient Variation 13.6 % (11.7-14.2); RDW Standard Deviation 47.4 fL (35.1-46.3); Red Blood Cell Count 3.94 M/mm3 (3.80-5.20); White Blood Cell Count 5.66 K/mm3 (4.00-11.30)
[2020-06-12 04:49] LABS: Alanine Aminotransfer (ALT/SGP 15 U/L (12-78); Albumin, Blood 3.1 g/dL (3.4-5.0); Albumin/Globulin Ratio 0.7 (0.8-1.8); Alk Phos 193 U/L (50-136); Anion Gap 3 mmol/L (6-16); Aspartate Aminotrans (AST/SGOT 23 U/L (12-37); Bilirubin, Total 0.8 mg/dL (0.1-1.0); Blood Urea Nitrogen 23 mg/dL (8-24); Bun/Creatinine Ratio 26.1 (12.0-20.0); CO2, Blood 43 mmol/L (21-32); Calcium, Blood 10.1 mg/dL (8.5-10.1); Chloride, Blood 94 mmol/L (98-108); Creatinine, Blood 0.88 mg/dL (0.40-1.00); Globulin, Blood 4.5 g/dL (2.2-4.0); Glomerular Filtration Rate >60 (60-); Glucose, Blood 133 mg/dL (70-99); Potassium, Blood 3.1 mmol/L (3.5-5.5); Sodium, Blood 140 mmol/L (136-145); Total Protein, Blood 7.6 g/dL (6.4-8.2)
[2020-06-12 05:03] LABS: PCO2 Arterial 77.7 mmHg (35-45); PO2 Arterial 71.3 mmHg (80-100); pH Blood Arterial 7.39 (7.35-7.45)
--- NOTE | 2020-06-12 05:50 | NUR ---
PATIENT TRANSFERRED UP FROM THE ED. SHE IS ON HER BASELINE LEVEL OF OXYGEN AT HOME ALTHOUGH HER ABG'S SHOW SHE IS RETAINING C02. SHE IS CONFUSED THROUGHOUT THE SHIFT, PULLING HER 02 SENSOR OFF AND FORGETTING WHY SHE NEEDS IT. SHE ALSO IS INTERMITTENTLY CONFUSED ABOUT THE TIMIE AND SITUATION. ENT CONSULT WAS UNABLE TO BE PROCESSED BECAUSE DR. MOREJON IS UNABLE TO COMPLETE THE BIOPSY IN AN INPATIENT SETTING. DR. MOREJON INSTRUCTED THIS NURSE TO PASS IT ON TO THE DAY SHIFT TEAM AND HAVE THEM DO A BIOPSY IN RADIOLOGY. BED ALARM IS ON THE PATIENT, VSS, CALL LIGHT WITHIN REACH. NO COMPLAINTS OF PAIN OR SOB. WILL CONTINUE TO MONITOR UNTIL END OF SHIFT
[2020-06-12 07:29] LABS: International Normalized Ratio 1.08; Prothrombin Time Results 11.5 Sec (9.7-11.5)
[2020-06-12 10:48] LABS: Automated BF RBC Count 0.051 M/mm3 (0-0); Automated BF WBC Count 0.469 K/mm3 (0-999); Body Fluid WBC Count 469 /mm3 (0-999); RBC Count, Body Fluid 51000 /mm3 (0-0)
[2020-06-12 10:57] LABS: Albumin, Body Fluid 2.3 g/dL; Lactate Dehydrogenase, Body Fl 99 U/L; Protein, Body Fluid 4.6 g/dL; Triglycerides, Body Fluid 47 mg/dL
[2020-06-12 11:18] LABS: pH, Body Fluid 7.5
[2020-06-12 11:25] LABS: Appearance, Body Fluid Hazy (Clear); Color, Body Fluid Red (None-Yellow); Total Cell Count, Body Fluid 100
--- NOTE | 2020-06-12 11:38 | NUR ---
PIANO CASE AND BENCH ASSEMBLER REPORTS A 15 SECOND RUN OF VTAC. PT WAS ASYMPTOMATIC. DR DONG NOTIFIED. NO NEW ORDERS. WILL CONTINUE TO MONITOR.
--- NOTE | 2020-06-12 15:25 | NUR ---
SHIFT SUMMARY PT HAS BEEN A/O TO SELF AND SITUATION TODAY WITH BASELINE CONFUSION. SHE CONTINUES TO PULL AT LINES BUT IS EASILY REDIRECTED. ULTRASOUND, THORACENTESIS AND BIOPSY WERE BOTH DONE ORDERED THIS MORNING. PT HAS BEEN INC AND HAS A BRIEF IN PLACE. SHE IS ON 2 LPM OF O2 VIA N.C. WHICH IS HER BASELINE. PT DOES NOT USE THE CALL LIGHT BUT SHE CAN MAKE HER NEEDS KNOWN WHEN ASKED. SHE WORKED WITH THERAPY THIS AFTERNOON AND IS UP TO THE RECLINER CHAIR. SHE HAS AN ORDER FOR AN IN-HOUSE TRANSFER TO MEDICAL FLOOR PENDING BED PLACEMENT. SHE IS RESTING IN HER ROOM.
--- NOTE | 2020-06-12 16:46 | NUR ---
PT TRANSFERRED TO MEDICAL FLOOR. REPORT WAS CALLED TO RECEIVING NURSE. FAMILY WAS NOTIFIED. ALL PERSONAL BELONGINGS SENT WITH THE PT. PT STABLE UPON DC.
--- NOTE | 2020-06-12 17:48 | NUR ---
SHIFT SUMMARY PATIENT IS A PCU TRANSFER FROM TODAY. DENIES ANY CONCERNS AT THIS TIME. SHE IS PLEASANTLY CONFUSED. SHE HAS PULLED ONE IV TODAY. REPORTS NO PAIN, BUT DOES NOTE THAT SHE IS FEELING HUNGRY. PATIENT HAS CRITICALLY HIGH PCO2 LEVELS, AND SHE DOES NOT WANT TO WEAR HER OXYGEN.
--- NOTE | 2020-06-12 21:36 | NUR ---
PT. ROOM 336 KEEPS STANDING UP PT. TRYING TO TAKE OFF GOWN AND TELE TO PUT ON CLOTHES TO GO HOME SEEMS CONFUSED REPORTED TO HER NURSE.
--- NOTE | 2020-06-12 22:51 | NUR ---
PATIENT CONFUSED PULLING TELEMETRY, GOWN, AND O2 NC 2L OFF. GOWN REPLACED, TELEMETRY BACK ON WITH O2 NC 2L.
--- NOTE | 2020-06-13 02:29 | NUR ---
PATIENT PULLED AND BROKE TELE LEADS APART. PULLED PIV OUT MULTIPLE TIMES AND PULLED GOWN OFF. CONFUSED AND UNABLE TO REORIENT AT THIS TIME. PATIENT HAD MULTIPLE BED EXITS ACTIVATING BED ALARM. PATIENT BACK IN BED AND GOWN REPLACED.
--- NOTE | 2020-06-13 03:10 | NUR ---
SHIFT SUMMARY PATIENT HAVING INCREASED CONFUSION. PULLING OUT IV'S MULTIPLE TIMES. PATIENT PULLED TELEMETRY LEADS OFF AND PULLED APART T/O THIS SHIFT. PULLS O2 2L NC OFF AND PULLS GOWN OFF T/O SHIFT. NOT ABLE TO REORIENT AT THIS TIME AND FOLLOW DIRECTIONS. PATIENT REFUSED BUMEX PO AND XARELTO ON DAY SHIFT AND GIVEN ON NOC SHIFT. CARD READER REPORTED A-FIB 94. VSS/AFEBRILE. DENIES PAIN, SOB, AND N/V. CALL LIGHT IN REACH. BED IN LOWEST POSITION AND ALARM ACTIVATED. WILL CONTINUE TO MONITOR UNTIL DAY SHIFT NURSE ASSUMES CARE.
--- NOTE | 2020-06-13 05:07 | NUR ---
HOSPITALIST DR QUINTEROS ORDERED BILATERAL SOFT WRIST RESTRAINTS AND ROBB VEST. PATIENT PULLING OUT PIV'S, PULLING TELEMETRY LEADS OFF, OXYGEN OFF AND GOWN OFF. PIV REPLACED, TELEMETRY IN PLACE, O2 2L NC ON AND GOWN ON.
[2020-06-13 05:32] LABS: BASOPHILS ABSOLUTE AUTO 0.06 K/mm3 (0.00-0.23); BASOPHILS PERCENT AUTO 1 % (0-2); EOSINOPHILS ABSOLUTE AUTO 0.17 K/mm3 (0.00-0.68); EOSINOPHILS PERCENT AUTO 3 % (0-6); Hematocrit 38.2 % (33.0-51.0); Hemoglobin 11.9 g/dL (11.5-16.0); IMMATURE GRAN ABSOLUTE AUTO 0.05 K/mm3 (0.00-0.10); IMMATURE GRAN PERCENT AUTO 1 % (0-1); LYMPHOCYTES ABSOLUTE AUTO 1.08 K/mm3 (0.84-5.20); LYMPHOCYTES PERCENT AUTO 18 % (21-46); MONOCYTES PERCENT AUTO 8 % (4-13); Mean Corpuscular HGB 28.7 pg (26.0-34.0); Mean Corpuscular HGB Conc 31.2 g/dL (31.5-36.5); Mean Corpuscular Volume 92 fL (80-100); Mean Platelet Volume 9.4 fL (9.1-12.4); NEUTROPHILS ABSOLUTE AUTO 4.28 K/mm3 (1.96-9.15); NEUTROPHILS PERCENT AUTO 70 % (41-73); Platelet Count 180 K/mm3 (150-400); RDW Coefficient Variation 13.8 % (11.7-14.2); Red Blood Cell Count 4.14 M/mm3 (3.80-5.20); White Blood Cell Count 6.14 K/mm3 (4.00-11.30)
[2020-06-13 05:50] LABS: Anion Gap 4 mmol/L (6-16); Blood Urea Nitrogen 18 mg/dL (8-24); Bun/Creatinine Ratio 20.3 (12.0-20.0); CO2, Blood 43 mmol/L (21-32); Calcium, Blood 9.9 mg/dL (8.5-10.1); Chloride, Blood 94 mmol/L (98-108); Creatinine, Blood 0.89 mg/dL (0.40-1.00); Glomerular Filtration Rate >60 (60-); Glucose, Blood 151 mg/dL (70-99); Potassium, Blood 3.3 mmol/L (3.5-5.5); Sodium, Blood 141 mmol/L (136-145)
--- NOTE | 2020-06-13 11:58 | NUR ---
patient still in restraints. she is up in the chair, trialing without wrists. she is picking at her iv dressing. she is having hallucinations and still thinks that the phone is ringing. called her son on the phone for her and she was able to talk to him but then set the phone down while it was still on. patient is definitely confused but able to answer orientation questions. denies any pain at this time.
--- NOTE | 2020-06-13 15:02 | NUR ---
SPOKE WITH DR. DONG, HE REPORTS THAT THE PATIENT HAD BEEN BROUGHT IN FOR THE ALTERED MENTAL STATE AND AWARE OF THE CURRENT CONCERNS AND THAT PATIENT IS IN RESTRAINTS. EXPRESSED THE REASONING AND NOTIFIED HIM THAT SHE IS STILL HAVING OCCASIONAL RUNS OF VTACH.
--- NOTE | 2020-06-13 15:37 | NUR ---
ASSUMED CARE OF PATIENT AT 1520 UPON TRANSFER FROM ROOM 336. EDE IS SITTING IN A RECLINER; ALERT AND ORIENTED TO SELF, IS CONFUSED ABOUT LOCATION AND DOES NOT KNOW THE DATE, IS PLEASANT AND COOPERATIVE AT THIS TIME. WEARING O2 @ 2 L/MIN NC, LUNGS ARE DIMINISHED THROUGHOUT. CARDIAC RHYTHM IS AFIB @ 78, NO PERIPHERAL EDEMA. C/O LLQ NON SPECIFIC DISCOMFORT, PASSING GAS, STATED LBM YESTERDAY, ABD ROUNDED AND FIRM. STATED SHE MISSES HER SONS, WANTS TO GO HOME.
--- NOTE | 2020-06-13 18:08 | NUR ---
SHIFT SUMMARY: NO ACUTE EVENTS. DENIES PAIN. SITTING UP IN RECLINER. CURRENT BEHAVIOR DOES NOT WARRANT RESTRAINTS SO THEY HAVE BEEN D/C'D. TOLERATING PO INTAKE.
[2020-06-14 05:14] LABS: Hematocrit 36.8 % (33.0-51.0); Hemoglobin 11.3 g/dL (11.5-16.0); Mean Corpuscular HGB Conc 30.7 g/dL (31.5-36.5); Mean Corpuscular Volume 95 fL (80-100); Mean Platelet Volume 9.1 fL (9.1-12.4); Platelet Count 186 K/mm3 (150-400); RDW Standard Deviation 47.8 fL (35.1-46.3); Red Blood Cell Count 3.89 M/mm3 (3.80-5.20); White Blood Cell Count 6.02 K/mm3 (4.00-11.30)
[2020-06-14 05:37] LABS: Bun/Creatinine Ratio 19.6 (12.0-20.0); Calcium, Blood 9.3 mg/dL (8.5-10.1); Creatinine, Blood 1.02 mg/dL (0.40-1.00); Potassium, Blood 3.1 mmol/L (3.5-5.5)
--- NOTE | 2020-06-14 06:50 | NUR ---
06/14/20 0615 PT SLEPT WELL. VITALS STABLE. SISTER CALLED TWICE LAST NIGHT FOR UPDATE. PT SLIGHTLY MORE ALERT THIS SHIFT.
--- NOTE | 2020-06-14 12:30 | NUR ---
Initial Pal Care visit - Referral received for advanced care planning and s/s management. Reviewed EMR and other recent admissions before making a visit. Pt was on BSC on initial arrival. She was able to xfer with one person assist back to chair and was finishing her lunch independently when I returned to her room. Pt pleasant, interactive, fixated on when she will be able to return home. She was happy to hear her sons were expected in to see her later this afternoon. Pt became almost tearful when I could not confirm with her when she would be released from the hospital. RN reports that pt's mentation is much improved since yesterday but in my phone conversation with her son, Edgar, earlier, he states in the middle of their conversation she was verbalizing hallucinations again. During the nights pt has had increased confusion and agitation, pulling out of IV's and requiring soft restraints and/or luisa vest for safety. Son relates that night-times have been the most stressful with behaviors and confusion for the past week and previously when the pt had UTI's recently. Son states they cannot cont. home care unless pt's mentation and care needs improve. Pt is 74 years old. She has PMH of chronic diastolic failure, a-fib, O2 dependenc, morbid obesity, HTN, insulin dep DM, periph neuropathy, osteo and gouty arthritis, recent recurrent R pleural effusions, neck mass of undetermined etiol and no work up prior to this admission. Son states several Dr appointments have been scheduled for f/u of these recent new issues but pt becomes ill and hospitalized before she can get to OP appointments. She has not seen software engineer sales/oncologist but was scheduled with Dr Jarvis and she has not seen ENT as an outpt yet. Currently, pt was admitted with acute encephalopathy and hallucinations, acute on chronic respiratory failure with hypercapnia and recurrent R pleural effusion. She has had radiology studies and results suggestive of malignancy and has pathology pending on bx of neck mass and pleural fluid drained since admission. Pt is currently a FULL CODE. Her NOK listed is tadeo DICKINSON - corrected ph contact # for Pramod is [phone], Second NOK listed is pt's sister Ida- ph # [phone]. I spoke with son, Edgar at the ph # listed as pt's home ph# [phone]. After lengthy conversation with Edgar re: pt's current decision making capacity/understanding, advanced care planning, identifying a surrogate decision maker and code status, we agreed to meet in person later today with Edgar and his brother Pramod. Edgar states they have had some help or conversation re: care needs with Darline and Pauline at [facility]. It sounds like Astrid has a very rn postpartum caregiver for a couple hours in the mornings some days of the week. THis is no longer adequate to meet her needs. I told Edgar I would request assist with DC planning and options avaialble to pt via our Care management staff and request a visit or contact with them tomorrow when we would have care management staff avail. Booklet, [employer] choices for [place] [employer], left in the room for Edgar and he is aware of that. Update to pt's RN and Dr after my visit. Order for care management entered with details and contact info included. I called admitting to have Pramod's contact # corrected in pt's EMR. Plan: Family meeting this afternoon with pt's sons.
--- NOTE | 2020-06-14 15:25 | NUR ---
[facility] Care visit #2 today. Family conference outside of pt's room after meeting with sons in pt's room. She appears less anxious with sons visiting. I am not observing any nonverbal indicators of pain and pt is not reporting pain to me or her sons. Pt remains fixated and anxious about when she can go home. Sons left to visit for 10-15 minutes and then we met away from her room. I asked sons if, based on their visit and conversation, they felt their mom could understand medical information and make decisions for herself. Both sons state, no. They understand that without a medical POA they are her decision makers by [place] law and our policy if she is not able to. They are willing to be her surrogate decision makers and will also consult pt's sisters. We reviewed with Pramod, the long conversation I had with Edgar earlier re: code status, tx options, goals of care, what their mom would want if she does have a malignancy. I encouraged family conversation and thought, questions to providers. Until recently, pt has been alert, oriented and capable of managing her affairs. She was evaluated for caregiving needs a couple of months ago and no increased needs identified at that time. Sons are unsure if it is [facility] or [facility] that provides the caregiver hours. I explained that medicare does not cover care home care giving but medicaid does. Sons are unaware if pt has medicaid or a APD worker. THis is something CM could follow up on Monday after the holiday. Sons are clear that they cannot manage their mom's care needs unless she were able to return to her PLOF from around two months ago. They are aware that may not be possible and verbalize desire to research alternative placement for their mom, outside of the home if that is their new reality and caregiving in the home not available/funded. They have a contact, Pauline, at [facility] also, but are unsure what benefits their mom is eligible for thru that agency. We reviewed options in advanced care planning, life sustaining interventions, code status, goals of care, previously stated wishes. Sons both state that their mom would not want to be on life support to prolong life with no realistic recovery anticipated. We reviewed her long list of severe and chronic conditions outside of the possiblity of malignancy and her current quality of life. Sons plan to discuss amongst themselves and with pt's sisters and await pathology results. We planned to talk again on Monday when hopefully more information would be available. Edgar states pt has a POLST form on her refrigerator that was completed approx 5 years ago. I asked them to review it and report if it reflects a different code and goal than currently in place. We discussed updating pt's POLST later in the week based on results and family discussions with Drs and each other.
--- NOTE | 2020-06-14 17:11 | NUR ---
SHIFT SUMMARY: NO ACUTE EVENTS. A&O X 2-3, MUCH IMPROVED FROM YESTERDAY. CARDIAC RHYTHM AFIB IN THE 70'S. BREATH SOUNDS QUITE DIM IN RLL. DENIES SOB BUT HAS SLIGHT WILD. DENIED PAIN. GOOD PO INTAKE. HAD VISIT FROM BOTH SONS TODAY. Olivia HARDEN FROM PALLIATIVE CARE HAD GOALS OF CARE DISCUSSION WITH THEM TODAY. THIS AUTHOR GAVE UPDATE TO PT'S SISTER DEONTE BY PHONE. UP IN RECLINER MOST OF THIS SHIFT, SBA FOR TRANSFERS TO BSC.
--- NOTE | 2020-06-15 05:07 | NUR ---
06/15/20 0505 PT AWAKENED FOR LABWORK. DENIES ANY S/S OF DISCOMFORT. SLEPT WELL. ON AND OFF TO BSC WITH SBA. VITALS STABLE.
[2020-06-15 05:28] LABS: Hematocrit 41.5 % (33.0-51.0); Hemoglobin 12.9 g/dL (11.5-16.0); Mean Corpuscular HGB 28.7 pg (26.0-34.0); Mean Corpuscular HGB Conc 31.1 g/dL (31.5-36.5); Mean Corpuscular Volume 92 fL (80-100); Mean Platelet Volume 9.2 fL (9.1-12.4); Platelet Count 174 K/mm3 (150-400); RDW Coefficient Variation 14.1 % (11.7-14.2); RDW Standard Deviation 46.7 fL (35.1-46.3); Red Blood Cell Count 4.49 M/mm3 (3.80-5.20); White Blood Cell Count 6.66 K/mm3 (4.00-11.30)
[2020-06-15 05:43] LABS: Bun/Creatinine Ratio 22.4 (12.0-20.0); Calcium, Blood 9.4 mg/dL (8.5-10.1); Creatinine, Blood 0.98 mg/dL (0.40-1.00); Magnesium, Blood 1.9 mg/dL (1.6-2.4); Potassium, Blood 3.6 mmol/L (3.5-5.5)
--- NOTE | 2020-06-15 18:25 | NUR ---
SHIFT SUMMARY PT HAS HAD NO COMPLAINTS THIS SHIFT. PT HAS BEEN UP IN THE CHAIR MOST OF THE SHIFT. HAS A GOOD APPETITE. PLANS FOR POSSIBLE DISCHARGE TOMORROW. NO ACUTE CHANGES THIS SHIFT. CALL LIGHT IN REACH. WILL CONTINUE TO MONITOR AND REPORT TO ONCOMING RN.
--- NOTE | 2020-06-16 06:08 | NUR ---
06/16/20 0600 PT SLEPT WELL LAST NIGHT. SHE SAT UP IN CHAIR UNTIL 0230 BEFORE GOING TO BED. SLEEPING IN CHAIR WELL. VITALS STABLE. DENIES ANY PAIN OR S/S. UP TO BS WITH HELP FOR VOIDINGS. O2 REMAINS AT 2LPM VIA N/C.
[2020-06-16] MEDS ORDERED: SENNA LAXATIVE8.6 MG PO (10:21)
[2020-06-16] MEDS ORDERED: LANTUS SOL100 UNIT/1 SC (10:22)
--- NOTE | 2020-06-16 15:36 | NUR ---
DISCHARGE DISCHARGE MEDICATIONS AND INSTRUCTIONS EXPLAINED TO PATIENT AND PATIENT'S SON. THEY STATED UNDERSTANDING. FOLLOW UP [facility] PCP SCHEDULED. IV REMOVED WITHOUT ISSUE. BELONGINGS WITH PATIENT. TRANSFERED TO PRIVATE VEHICLE VIA WHEELCHAIR.
== END 2020-06-16 15:36 | disposition home health service (06) | DRG 91 ==
LOC: ER 14:42 → PCU 14:43 → MEDS 06-12 15:37 → PCU 06-12 15:38 → MEDS 06-12 16:36
PROVIDERS: Emergency Medicine; Internal Medicine; Nurse Practitioner Acute Care; ADMIT Family Medicine
PROC: 0W9930Z Drainage of Right Pleural Cavity with Drainage Device, Percutaneous Approach (ICD-10-PCS; principal; 2020-06-12)
DX: G92 Toxic encephalopathy (principal); J96.21 Acute and chronic respiratory failure with hypoxia; J96.22 Acute and chronic respiratory failure with hypercapnia; I50.32 Chronic diastolic (congestive) heart failure; Z68.43 Body mass index [BMI] 50.0-59.9, adult; I48.20 Chronic atrial fibrillation, unspecified; R22.1 Localized swelling, mass and lump, neck; E66.01 Morbid (severe) obesity due to excess calories; E11.42 Type 2 diabetes mellitus with diabetic polyneuropathy; Z99.81 Dependence on supplemental oxygen; I11.0 Hypertensive heart disease with heart failure; Z20.828 Contact with and (suspected) exposure to other viral communicable diseases; I27.20 Pulmonary hypertension, unspecified; M40.203 Unspecified kyphosis, cervicothoracic region; E78.5 Hyperlipidemia, unspecified; N18.3 Chronic kidney disease, stage 3 (moderate); E11.22 Type 2 diabetes mellitus with diabetic chronic kidney disease; Z79.4 Long term (current) use of insulin; T50.905A Adverse effect of unspecified drugs, medicaments and biological substances, initial encounter; Y92.9 Unspecified place or not applicable; D34 Benign neoplasm of thyroid gland
CPT/HCPCS: 32555; 36415; 36600; 38505; 51701; 70450; 70491; 71045; 74177; 76700; 76942; 80048; 80053; 81001; 82042; 82140; 82330; 82803; 82947; 83615; 83735; 83986; 84157; 84443; 84478; 84484; 85025; 85027; 85610; 85730; 88108; 88305; 88341; 88342; 89051; 93005; 93010; 94660; 94762; 96374; 97110; 97112; 97116; 97162; 97530; 99285-25; A9270; A9270-GY; G0378; J7120; Q9967; U0002

== ENCOUNTER 2020-07-03 16:11 | Emergency (ER) | payer OTHER ==
[~2020-07-03] VITALS: Ht 160 cm; Wt 99.3 kg
[~2020-07-03 16:11] MED LIST changes: +DOK100 M2 PO; +LANTUS SOL100 UNIT/1 SC; +SENNA LAXATIVE8.6 MG PO
[2020-07-03 17:48] LABS: BASOPHILS ABSOLUTE AUTO 0.05 K/mm3 (0.00-0.23); BASOPHILS PERCENT AUTO 1 % (0-2); EOSINOPHILS ABSOLUTE AUTO 0.28 K/mm3 (0.00-0.68); EOSINOPHILS PERCENT AUTO 5 % (0-6); Hematocrit 39.1 % (33.0-51.0); Hemoglobin 11.7 g/dL (11.5-16.0); IMMATURE GRAN ABSOLUTE AUTO 0.01 K/mm3 (0.00-0.10); IMMATURE GRAN PERCENT AUTO 0 % (0-1); LYMPHOCYTES ABSOLUTE AUTO 0.92 K/mm3 (0.84-5.20); LYMPHOCYTES PERCENT AUTO 15 % (21-46); MONOCYTES ABSOLUTE AUTO 0.47 K/mm3 (0.16-1.47); MONOCYTES PERCENT AUTO 8 % (4-13); Mean Corpuscular HGB 28.6 pg (26.0-34.0); Mean Corpuscular HGB Conc 29.9 g/dL (31.5-36.5); Mean Corpuscular Volume 96 fL (80-100); Mean Platelet Volume 9.4 fL (9.1-12.4); NEUTROPHILS ABSOLUTE AUTO 4.45 K/mm3 (1.96-9.15); NEUTROPHILS PERCENT AUTO 72 % (41-73); Platelet Count 182 K/mm3 (150-400); RDW Coefficient Variation 14.3 % (11.7-14.2); RDW Standard Deviation 49.5 fL (35.1-46.3); Red Blood Cell Count 4.09 M/mm3 (3.80-5.20); White Blood Cell Count 6.18 K/mm3 (4.00-11.30)
[2020-07-03 18:04] LABS: Alanine Aminotransfer (ALT/SGP 16 U/L (12-78); Albumin, Blood 3.2 g/dL (3.4-5.0); Albumin/Globulin Ratio 0.7 (0.8-1.8); Alk Phos 245 U/L (50-136); Anion Gap 4 mmol/L (6-16); Aspartate Aminotrans (AST/SGOT 35 U/L (12-37); Bilirubin, Total 0.6 mg/dL (0.1-1.0); Blood Urea Nitrogen 24 mg/dL (8-24); Bun/Creatinine Ratio 31.1 (12.0-20.0); CO2, Blood 38 mmol/L (21-32); Calcium, Blood 10.2 mg/dL (8.5-10.1); Chloride, Blood 95 mmol/L (98-108); Creatinine, Blood 0.77 mg/dL (0.40-1.00); Globulin, Blood 4.4 g/dL (2.2-4.0); Glomerular Filtration Rate >60 (60-); Glucose, Blood 135 mg/dL (70-99); Potassium, Blood 3.6 mmol/L (3.5-5.5); Sodium, Blood 137 mmol/L (136-145); Total Protein, Blood 7.6 g/dL (6.4-8.2); Troponin I <0.015 ng/mL (0.000-0.040)
[2020-07-04] MEDS ORDERED: GABA300 PO (00:15)
[2020-07-04] MEDS ORDERED: LEVSOD25 PO (00:22)
[2020-07-04] MEDS ORDERED: Cipro250 MG PO (00:23)
== END 2020-07-04 01:00 | disposition home or self-care (01) ==
LOC: ER 16:11
PROVIDERS: Physician Assistant
DX: I11.0 Hypertensive heart disease with heart failure (principal); I50.9 Heart failure, unspecified; E11.9 Type 2 diabetes mellitus without complications; I48.91 Unspecified atrial fibrillation; Z88.8 Allergy status to other drugs, medicaments and biological substances; Z88.2 Allergy status to sulfonamides; Z88.5 Allergy status to narcotic agent; Z91.02 Food additives allergy status; Z88.1 Allergy status to other antibiotic agents; Z91.018 Allergy to other foods; Z79.01 Long term (current) use of anticoagulants; Z79.4 Long term (current) use of insulin; Z79.899 Other long term (current) drug therapy; Z87.442 Personal history of urinary calculi
CPT/HCPCS: 36415; 71046; 80053; 83880; 84484; 85025; 93005; 93010; 99285-25

== ENCOUNTER 2020-07-08 17:35 | Inpatient (IN) | payer OTHER ==
[~2020-07-08] VITALS: Ht 160 cm; Wt 97.6 kg
[~2020-07-08 17:35] MED LIST changes: +CIPR500 PO; +LEVSOD25 PO
[2020-07-08 18:35] LABS: BASOPHILS ABSOLUTE AUTO 0.06 K/mm3 (0.00-0.23); BASOPHILS PERCENT AUTO 1 % (0-2); EOSINOPHILS ABSOLUTE AUTO 0.19 K/mm3 (0.00-0.68); EOSINOPHILS PERCENT AUTO 3 % (0-6); Hematocrit 38.1 % (33.0-51.0); Hemoglobin 11.6 g/dL (11.5-16.0); IMMATURE GRAN ABSOLUTE AUTO 0.02 K/mm3 (0.00-0.10); IMMATURE GRAN PERCENT AUTO 0 % (0-1); LYMPHOCYTES ABSOLUTE AUTO 1.17 K/mm3 (0.84-5.20); LYMPHOCYTES PERCENT AUTO 20 % (21-46); MONOCYTES ABSOLUTE AUTO 0.43 K/mm3 (0.16-1.47); MONOCYTES PERCENT AUTO 7 % (4-13); Mean Corpuscular HGB 29.1 pg (26.0-34.0); Mean Corpuscular HGB Conc 30.4 g/dL (31.5-36.5); Mean Corpuscular Volume 96 fL (80-100); Mean Platelet Volume 9.3 fL (9.1-12.4); NEUTROPHILS PERCENT AUTO 68 % (41-73); Platelet Count 204 K/mm3 (150-400); RDW Coefficient Variation 14.5 % (11.7-14.2); RDW Standard Deviation 50.5 fL (35.1-46.3); Red Blood Cell Count 3.98 M/mm3 (3.80-5.20); White Blood Cell Count 5.87 K/mm3 (4.00-11.30)
[2020-07-08 18:58] LABS: Alanine Aminotransfer (ALT/SGP 14 U/L (12-78); Albumin, Blood 3.3 g/dL (3.4-5.0); Albumin/Globulin Ratio 0.7 (0.8-1.8); Alk Phos 235 U/L (50-136); Anion Gap 3 mmol/L (6-16); Aspartate Aminotrans (AST/SGOT 25 U/L (12-37); Bilirubin, Total 0.6 mg/dL (0.1-1.0); Blood Urea Nitrogen 23 mg/dL (8-24); Bun/Creatinine Ratio 25.5 (12.0-20.0); CO2, Blood 43 mmol/L (21-32); Calcium, Blood 10.2 mg/dL (8.5-10.1); Chloride, Blood 95 mmol/L (98-108); Globulin, Blood 4.6 g/dL (2.2-4.0); Glomerular Filtration Rate >60 (60-); Glucose, Blood 85 mg/dL (70-99); Potassium, Blood 3.8 mmol/L (3.5-5.5); Sodium, Blood 141 mmol/L (136-145); Total Protein, Blood 7.9 g/dL (6.4-8.2); Troponin I <0.015 ng/mL (0.000-0.040)
[2020-07-08 19:13] LABS: Base Excess Venous 22.5 mmol/L; Bicarbonate Venous 42.7 mmol/L (24.0-30.0); PCO2 Venous 84.8 mmHg (38-42); PO2 Venous 72.4 mmHg (38-42); pH Blood Venous 7.36 (7.34-7.37)
[2020-07-08 19:32] LABS: Source, Urine Catheter
[2020-07-08 19:37] LABS: Bilirubin, Urine Neg (Neg); Blood, Urine 4+ (Neg); Glucose Qualitative, Urine Neg (Neg); Ketones, Urine Neg (Neg); Leukocyte Esterase, Urine Neg (Neg); Nitrite, Urine Neg (Neg); Protein, Urine Neg (Neg); Urobilinogen, Urine NORM (Normal)
[2020-07-08 19:43] LABS: Appearance, Urine Hazy (Clear); Color, Urine Yellow (P-Yellow)
[2020-07-08 19:44] LABS: Bacteria Rare /hpf; Mucus Light (0-Heavy); Red Blood Cells, Urine 50-100 /hpf (0-2); Squamous Epithelial Cells Few /hpf (Few); White Blood Cells, Urine Not Seen /hpf (0-5)
[2020-07-08 20:33] LABS: Adenovirus Not Detected (NOT DETECT); Bordetella pertussis Not Detected (NOT DETECT); Chlamydophila pneumoniae Not Detected (NOT DETECT); Coronavirus 229E Not Detected (NOT DETECT); Coronavirus HKU1 Not Detected (NOT DETECT); Coronavirus NL63 Not Detected (NOT DETECT); Coronavirus OC43 Not Detected (NOT DETECT); Human Metapneumovirus Not Detected (NOT DETECT); Human Rhinovirus/Enterovirus Not Detected (NOT DETECT); Influenza A/2009-H1 Not Detected (NOT DETECT); Influenza A/H1 Not Detected (NOT DETECT); Influenza A/H3 Not Detected (NOT DETECT); Influenza B Not Detected (NOT DETECT); Mycoplasma pneumoniae Not Detected (NOT DETECT); Parainfluenza Virus 1 Not Detected (NOT DETECT); Parainfluenza Virus 2 Not Detected (NOT DETECT); Parainfluenza Virus 3 Not Detected (NOT DETECT); Parainfluenza Virus 4 Not Detected (NOT DETECT); Respiratory Syncytial Virus Not Detected (NOT DETECT); SARS-Cov-2 (COVID-19), BioFire Not Detected (NOT DETECT)
[2020-07-09 00:16] LABS: Total Protein, Blood 7.2 g/dL (6.4-8.2)
--- NOTE | 2020-07-09 04:56 | NUR ---
COURT CRIER SUMMARY NEW ADMIT FROM THE ED TONIGHT. PT ADMITTED FOR PLEURAL EFFUSION WHICH ARE RECURRENT. PT TO HAVE THORACENTESIS LATER TODAY PER DR MCELROY. PT AAOX4 AND PLEASANT. ON 2L O2 VIA NC WHICH IS BASELINE DOSE. PT DOES GET SOB WITH EXERTION AND REPORTS LOWER ABD PAIN AT TIMES RELATED TO SOME SOB SPELLS. PT STATES IS HAS BEEN THIS WAY "FOR QUITE AWHILE". PT ABD IS VERY DISTENDED AND IS SLIGHTLY PAINFUL TO PALPATION WHICH PT REPORTS IS CHRONIC ALSO. PT ABLE TO WALK SHORT DISTANCES WITH 1 ASSIST BUT STATES OF LATE SHE HAS HAD TO USE WHEELCHAIR MOST OF THE TIME. PT DOES HAVE VERY SMALL RED AREA ON COCCYX. 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 VSS, WILL CONTINUE TO MONITOR.
--- NOTE | 2020-07-09 09:42 | NUR ---
SPOKE WITH [employer] TECH THIS AM, PER ENRIQUE HE SPOKE WITH RADIOLOGIST AND PT TOOK ELIQUID 07/08 AM AND PT NEEDS TO BE OFF ELIQUIS FOR 3 DAYS FOR THE THORACENTESIS. HE STATES PLAN IS FOR MONDAY THORACENTESIS. DR AVELAR NOTIFIED. MARGARITA SHARMA'Shahana AT THIS TIME. PT UPSET TO SHE WAS TOLD IT WOULD BE THIS AM AND SHE IS REQUESTING TO CALL HER SON AND TO LEAVE. ASSISTED PT IN CALLING HER SISTER.
--- NOTE | 2020-07-09 16:44 | NUR ---
SHIFT SUMMARY NO ACUTE CHANGES T/O SHIFT. PT A&O TO SELF, PLACE, DATE, AND EVENT AT TIME OF ASSESSMENT BUT SHOWED MOMENTS OF CONFUSION AND HALLUCINATIONS T/O SHIFT. PT WAS SCHEDULED FOR A THORACENTESIS TODAY BUT DUE TO TAKING ELEQUIS THE PREVIOUS DAY THE PROCEDURE WAS CANCELLED. PT NOT HAPPY ABOUT THIS. THORACENTESIS IS NOW SCHEDULED FOR MONDAY. PROVIDER CONSULT FOR DURABILITY TECHNICIAN ALSO CALLED IN TODAY, SPOKE WITH ARIEL LOPEZ MYSELF. PT HAS A REDDENED/PURPLY AREA ON COCCYX. AMBULATED WITH 1 ASSIST IN HER ROOM. PT REMAINS ON 2 L/MIN OF OXYGEN WHICH IS PT BASELINE. LUNG SOUNDS ON RIGHT SIDE SEVERLY DIMINISHED.
--- NOTE | 2020-07-09 17:08 | NUR ---
DR LOPEZ IN TO SEE PT.
--- NOTE | 2020-07-09 17:46 | NUR ---
DR AVELAR CALLED THIS EVENING TO ASSURE THAT THORACENTESIS IS ORDERED WELL THE BODY FLUIDS ORDERED IN THE ED. DR AVELAR WOULD LIKE THORACENTESIS TO BE COMPLETED TOMORROW. SPOKE WITH [employer] TECH AGAIN AND HE REPORTS DR WILL HAVE TO CALL AND TALK WITH RADIOLOGIST ON TOMORROW TO SEE IF THEY WOULD PERFORM THORACENTESIS. PT HAS BEEN OFF ELIQUIS SINCE 930 AM. BODY FLUIDS REORDERED AT THIS TIME. DR AVELAR NOTIFIED.
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
[2020-07-10 06:06] LABS: Albumin, Blood 3.3 g/dL (3.4-5.0); Anion Gap 6 mmol/L (6-16); Blood Urea Nitrogen 22 mg/dL (8-24); Bun/Creatinine Ratio 22.2 (12.0-20.0); CO2, Blood 43 mmol/L (21-32); Calcium, Blood 10.3 mg/dL (8.5-10.1); Chloride, Blood 92 mmol/L (98-108); Creatinine, Blood 0.99 mg/dL (0.40-1.00); Glomerular Filtration Rate 58 (60-); Glucose, Blood 111 mg/dL (70-99); Phosphorus, Blood 3.1 mg/dL (2.5-4.9); Potassium, Blood 3.2 mmol/L (3.5-5.5); Sodium, Blood 141 mmol/L (136-145)
--- NOTE | 2020-07-10 18:14 | NUR ---
PATIENT IS ALERT. ORIENTED TO FOLLOWING DIRECTIONS AND FAMILY. PATIENT HAS INTERMITTENT CONFUSION AND HALLUCINATIONS. SHE HAS BEEN UP IN THE RECLINER ALL DAY. CALLS TO REPORT INCONTINENCE AND ASKS TO BE CHANGED. THE PATIENT'S SON LASHAY WAS AT THE BEDSIDE THIS AFTERNOON AND WAS ABLE TO SPEAK WITH DR. IGLESIAS. DR. JOHNSTON SAW THE PATIENT AND PLACED A ENT PROVIDER CONSULT, WHICH HAS BEEN CALLED IN. THE PATIENT'S RIGHT LUNG IS COLLAPSED. HER SATURATIONS HAVE BEEN CONSISTENTLY IN THE MID 90'S. SO COMPLAINTS OF SOB. ON 2L O2 VIA NC. THE PLAN IS FOR A THORACENTESIS TOMORROW. WILL CONTINUE TO MONITOR.
--- NOTE | 2020-07-10 19:00 | NUR ---
ASSUMED CARE RECEIVED REPORT FROM IDA ALEXANDER. ASSUMED CARE OF PT. RESTING COMFORTABLY IN RECLINER AT THIS TIME, NO S/S ACUTE DISTRESS NOTED. DENIES PAIN OR DISCOMFORT. CALL LIGHT, POSSESSIONS IN REACH. CHAIR ALARM ON. WILL CONTINUE TO MONITOR.
[2020-07-11 05:28] LABS: Blood Urea Nitrogen 25 mg/dL (8-24); Bun/Creatinine Ratio 24.5 (12.0-20.0); Calcium, Blood 9.7 mg/dL (8.5-10.1); Chloride, Blood 93 mmol/L (98-108); Creatinine, Blood 1.02 mg/dL (0.40-1.00); Glomerular Filtration Rate 56 (60-); Glucose, Blood 129 mg/dL (70-99); Potassium, Blood 3.4 mmol/L (3.5-5.5); Sodium, Blood 139 mmol/L (136-145)
[2020-07-11 05:31] LABS: Anion Gap Unable to Calculate mmol/L (6-16)
[2020-07-11 05:32] LABS: CO2, Blood >45 mmol/L (21-32)
--- NOTE | 2020-07-11 07:16 | NUR ---
SHIFT SUMMARY PT RESTING COMFORTABLY AT THIS TIME, NO S/S ACUTE DISTRESS NOTED. WAS MONITORED EVERY 1-2 HOURS WITH NEEDS MET. RESPS EVEN AND UNLABORED. VS REVIEWED. PT DENIES NEEDS AT THIS TIME. CALL LIGHT, POSSESSIONS IN REACH, BED IN LOWEST POSITION WITH ALARM ON. REPORT GIVEN TO IDA PAZ.
--- NOTE | 2020-07-11 17:42 | NUR ---
SHIFT SUMMARY PT RESTING QUIETLY IN BED AT START OF SHIFT, LEANING OVER D/T KYPHOSIS. WOKE EASILY FOR CARE. REQUESTED TO GET UP TO CHAIR. 1P ASSIST WITH FWW. PT VERY PLEASANT AND CO-OP WITH CARE. DR MOREJON IN TO SEE PT. SCOPE OF VOCAL CORDS DONE. PT TOLERATED WELL. PT TO HAVE THORACENTISIS TODAY. DR MOREJON CALLED DR IGLESIAS TO ADD ON THYROID BIOPSY. DR IGLESIAS TO TO SEE PT AND DISCUSS PLAN OF CARE. RADIOLOGY CALLED TO SEE WHEN PT ON SCHEDULE FOR THORA AND SEE IF THYROID BIOPSY COULD BE DONE TODAY WELL. [employer] SPANISH TEACHER REPORTED BIOPSY TO BE DONE ON MONDAY AND THORACENTESIS WILL BE DONE TOMORROW. DR IGLESIAS UPDATED ON TIME FRAME FOR PROCEDURES. SON NOTIFIED TO COME IN AND TALK WITH DR IGLESIAS TO DISCUSS PLAN OF CARE. DR IGLESIAS NOTIFIED WHEN SON CAME TO . DR JOHNSTON ALSO IN TO SEE PT THIS EVENING. PT DECLINED TO USE BIPAP IF NEEDED. PT UP TO BSC NEEDED. ALSO INCONTINENT IN ATTENDS AT TIMES. BED BATH GIVEN BY PROGRAM REP AND LINENS CHANGED. PT HAS BEEN VERY PLEASANT AND GRATEFUL FOR CARE. CALL LT IN REACH.
--- NOTE | 2020-07-12 05:04 | NUR ---
SHIFT SUMMARY LYING IN HIGH FOWLERS WITH EYES CLOSED PER HER REQUEST DUE TO KYPHOSIS. PREFERS TO SIT UP IN CHAIR DURING DAY SHIFT. INFORMED NURSING THAT SHE HAS CANCER DURING HS MED PASS. NURSING SAT AT BEDSIDE HOLDING HER HAND AND LISTENING TO HER PLANS ABOUT MAKING HER SONS CARE FOR HER DURING THIS DIFFICULT TIME. SWALLOWS MEDS WITHOUT DIFFICULTY WITH WATER. HAS RESTED OFF AND ON THROUGHOUT SHIFT. DENIES FURTHER NEEDS AT THIS TIME. SAFETY MEASURES IN PLACE. WILL CONTINUE TO MONITOR AND GIVE HAND OFF TO ONCOMING SHIFT USING SBAR.
--- NOTE | 2020-07-12 12:46 | NUR ---
Received call from Bedside IDA Cohen reporting Pt may benefit from therapeutic visit and discussion regarding her wishes for life sustaining treatments. Pt admitted for Pleural Effusion. Pt's medical history and comorbidities include: COPD, Diastolic CHF, HTN, Hyperlipidemia, Restless Leg Syndrome, Nephrolithiasis, Diabetic Neuropathy, Morbid Obesity, Osteoarthritis, Chronic Afib, Gouty Arthritis, and Recurrent R sided Pleural Effusion. Biopsy scheduled for tomorrow for possible thyroid cancer and concerns with kiley to the lungs. Plan will be for Pt to follow up with Dr King as an out patient. Pt sitting in recliner chair upon arrival. Pt is A&OX4 and denies pain at this time. As visit continued it appears Pt benefit from simple and easy to understand education. Engaged in therapeutic discussion regarding her wishes for life sustaining treatments and wishes for cancer treatment. Educated on life sustaining treatments including risk factors and implications. Answered questions and discussed concerns. After further discussion Pt is requesting to be DNR. Pt is agreeable for this RN to include son in decision. Discussed Pt's wishes if cancer treatment is available. Educated on palliative treatment vs curitive treatment. Pt reports if treatment is available including palliative she is considering pursuing. Continued therapeutic listening and answered questions. Assisted Pt with completing POLST with wishes for DNR and Limited Treatment. Called and spoke with Pt's son Pramod. Discussed Pt's wishes to be DNR. Pramod reports wanting to respect his mother's (Pt) wishes and is agreeable. Pramod reports he will relay wishes to his older brother Edgar. Called and spoke with Dr Paez. Changed code status to DNR per V/O from Dr Paez. Dr Paez will sign POLST during rounds. Spoke with Bedside IDA Cohen and discussed case. Palliative Care will remain available for therapeutic visits. Will obtain copy of POLST upon MD signature for medical records.
--- NOTE | 2020-07-12 15:15 | NUR ---
SHIFT SUMMARY PT RESTING QUIETLY IN BED AT START OF SHIFT. PT TX TO CHAIR FOR BREAKFAST. PT REMAINED IN CHAIR AGAIN DURING THE DAY TO PRESENT. PT PLEASANT AND CO-OP. WAITING FOR THORACENTISIS. DR IGLESIAS IN TO SEE PT. PALLIATIVE CARE WELL. GAMAL PRIETO TALKED WITH PT AND THEN WITH FAMILY. PT'S CODE STATUS NOW DNR. POLST ON FRONT OF CHART. PT UP TO BSC NEEDED WELL OCCASSIONAL INCONTINENCE. IMAGING HERE TO TAKE PT FOR THORA AT THIS TIME. PT ABLE TO TX FROM CHAIR TO RHAYNES. POST THORA CHEST XRAY ORDERED PER IMAGING PROTOCOL.
[2020-07-12 16:31] LABS: Protein, Body Fluid 4.8 g/dL
[2020-07-12 16:37] LABS: Automated BF WBC Count 0.311 K/mm3 (0-999); Body Fluid WBC Count 311 /mm3 (0-999); RBC Count, Body Fluid 60000 /mm3 (0-0)
[2020-07-12 16:43] LABS: Lactate Dehydrogenase, Body Fl 111 U/L
[2020-07-12 16:53] LABS: Glucose, Body Fluid 205 mg/dL
--- NOTE | 2020-07-12 17:18 | NUR ---
1655 PT RETURNED FROM THORACENTESIS; TOLERATED PROCEDURE WELL. PER SPINNING ROOM WORKER, 800ML FLUID REMOVED. POST THORA XRAY DONE. PT SITTING IN RECLINER AT BS WORKING CROSSWORD PUZZLES. REQUESTED DIABETIC SNACK. DENIED FURTHER NEEDS. PT VERY PLEASANT AND ALWAYS GRATEFUL FOR CARE GIVEN.
[2020-07-12 17:52] LABS: Total Cell Count, Body Fluid 100
[2020-07-12 17:53] LABS: Appearance, Body Fluid Bloody (Clear); Color, Body Fluid Red (None-Yellow)
--- NOTE | 2020-07-12 22:09 | NUR ---
ASSUMED CARE APPROXIMATELY 1900; PT UP TO CHAIR START OF SHIFT; A&O X 3; ANSWERS APPROPRIATELY; THIS RN AND AID ASSISTED PT TO BSC W/ NO DIFFICULTY; PT ASSISTED TO BED; BELONGINGS IN REACH; DENIES NEEDS AT THIS TIME
--- NOTE | 2020-07-13 05:20 | NUR ---
SHIFT SUMMARY PT A&O; PLEASANT & COMPLIANT W/ CARE; MAKES NEEDS KNOWN; SBA TO BSC; VSS; NO TELE; O2 SATS >92 ON RA; PT HAS APPROVED NO IV ACCESS; NO ACUTE CHANGES THIS SHIFT; NO DISTRESS NOTED T/O SHIFT; CALL LIGHT IN REACH; BED IN LOWEST POSITION; WILL CONTINUE TO MONITOR UNTIL HAND OFF TO DAY SHIFT RN.
[2020-07-13] MEDS ORDERED: K-Dur10 MEQ PO (13:10)
--- NOTE | 2020-07-13 14:24 | NUR ---
DISCHARGE PT DISCHARGED TODAY VIA WHEELCHAIR BY DISCHARGE VOLUNTEER AND SON. PRIOR DISCHARGE, I NOTIFIED THE SON ABOUT THE PT APPOINTMENT ON MONDAY FOR BIOPSY WITH DR MOREJON; AND I GAVE HIM DR MOREJON PHONE NUMBER FOR FOLLOW UP. I TRIED CALLING THE PCP CLINIC TO MAKE AN APPOINTMENT; BUT ON LUNCH BREAK. SON WILL CALL PCP TO MAKE A FOLLOW UP APPOINTMENT WITHIN A WEEK. PROVIDED THE PT INSTRUCTION/ HANDOUTS. PT NO IV.
== END 2020-07-13 13:42 | disposition home or self-care (01) | DRG 187 ==
LOC: ER 17:35 → MEDS 17:36 → ENPENDDIS 07-13 12:29 → MEDS 07-13 13:42
PROVIDERS: Emergency Medicine; Hospitalist; Internal Medicine; ADMIT Internal Medicine
PROC: 0W993ZX Drainage of Right Pleural Cavity, Percutaneous Approach, Diagnostic (ICD-10-PCS; principal; 2020-07-11)
DX: J90 Pleural effusion, not elsewhere classified (principal); E66.2 Morbid (severe) obesity with alveolar hypoventilation; I48.20 Chronic atrial fibrillation, unspecified; I13.0 Hypertensive heart and chronic kidney disease with heart failure and stage 1 through stage 4 chronic kidney disease, or unspecified chronic kidney disease; I50.42 Chronic combined systolic (congestive) and diastolic (congestive) heart failure; J98.11 Atelectasis; J96.11 Chronic respiratory failure with hypoxia; J96.12 Chronic respiratory failure with hypercapnia; M41.50 Other secondary scoliosis, site unspecified; Z99.81 Dependence on supplemental oxygen; Z87.01 Personal history of pneumonia (recurrent); E11.42 Type 2 diabetes mellitus with diabetic polyneuropathy; N18.30 Chronic kidney disease, stage 3 unspecified; E11.22 Type 2 diabetes mellitus with diabetic chronic kidney disease; E78.00 Pure hypercholesterolemia, unspecified; E87.6 Hypokalemia; J44.9 Chronic obstructive pulmonary disease, unspecified; J98.4 Other disorders of lung; C73 Malignant neoplasm of thyroid gland; I27.21 Secondary pulmonary arterial hypertension; R91.8 Other nonspecific abnormal finding of lung field; Z79.01 Long term (current) use of anticoagulants; Z68.38 Body mass index [BMI] 38.0-38.9, adult
CPT/HCPCS: 0202U; 32555; 36415; 71045; 71260; 80048; 80053; 80069; 81001; 82803; 82945; 82947; 83615; 83735; 83880; 84155; 84157; 84443; 84484; 85025; 85379; 88108; 88305; 89051; 93005; 93010; 99285-25; A9270-GY; G0008; G0378; J1815; Q2038; Q9967

== ENCOUNTER → 2020-07-15 | Outpatient (CLI) | payer OTHER ==
[~2020-07-15] MED LIST changes: +K-Dur10 MEQ PO
== END | disposition home or self-care (01) ==
LOC: LAB 08:11 → LAB SHORT 08:11
DX: D44.0 Neoplasm of uncertain behavior of thyroid gland (principal)
CPT/HCPCS: 88305

== ENCOUNTER 2020-08-07 13:10 | Emergency (ER) | payer OTHER ==
[~2020-08-07] VITALS: Ht 152.4 cm; Wt 99.8 kg
[2020-08-07 14:08] LABS: BASOPHILS ABSOLUTE AUTO 0.06 K/mm3 (0.00-0.23); BASOPHILS PERCENT AUTO 1 % (0-2); EOSINOPHILS ABSOLUTE AUTO 0.14 K/mm3 (0.00-0.68); EOSINOPHILS PERCENT AUTO 3 % (0-6); Hematocrit 40.7 % (33.0-51.0); Hemoglobin 12.2 g/dL (11.5-16.0); IMMATURE GRAN ABSOLUTE AUTO 0.01 K/mm3 (0.00-0.10); IMMATURE GRAN PERCENT AUTO 0 % (0-1); LYMPHOCYTES ABSOLUTE AUTO 0.96 K/mm3 (0.84-5.20); LYMPHOCYTES PERCENT AUTO 17 % (21-46); MONOCYTES ABSOLUTE AUTO 0.36 K/mm3 (0.16-1.47); MONOCYTES PERCENT AUTO 7 % (4-13); Mean Corpuscular HGB 28.2 pg (26.0-34.0); Mean Corpuscular Volume 94 fL (80-100); Mean Platelet Volume 9.5 fL (9.1-12.4); NEUTROPHILS ABSOLUTE AUTO 3.98 K/mm3 (1.96-9.15); NEUTROPHILS PERCENT AUTO 72 % (41-73); Platelet Count 203 K/mm3 (150-400); RDW Coefficient Variation 14.2 % (11.7-14.2); RDW Standard Deviation 49.2 fL (35.1-46.3); Red Blood Cell Count 4.33 M/mm3 (3.80-5.20); White Blood Cell Count 5.51 K/mm3 (4.00-11.30)
[2020-08-07 14:39] LABS: Source, Urine Clean Catch
[2020-08-07 14:44] LABS: Albumin, Blood 3.2 g/dL (3.4-5.0); Albumin/Globulin Ratio 0.6 (0.8-1.8); Bilirubin, Total 0.7 mg/dL (0.1-1.0); Calcium, Blood 9.6 mg/dL (8.5-10.1); Creatinine, Blood 1.1 mg/dL (0.40-1.00); Potassium, Blood 4.1 mmol/L (3.5-5.5); Total Protein, Blood 8.2 g/dL (6.4-8.2)
[2020-08-07 15:00] LABS: Appearance, Urine Clear (Clear); Bilirubin, Urine Neg (Neg); Blood, Urine 3+ (Neg); Color, Urine Yellow (P-Yellow); Glucose Qualitative, Urine Neg (Neg); Ketones, Urine Neg (Neg); Leukocyte Esterase, Urine Neg (Neg); Nitrite, Urine Neg (Neg); Protein, Urine Neg (Neg); Urobilinogen, Urine NORM (Normal)
[2020-08-07 15:38] LABS: Squamous Epithelial Cells Rare /hpf (Few); White Blood Cells, Urine 0-2 /hpf (0-5)
[2020-08-07 15:39] LABS: Bacteria Rare /hpf
== END 2020-08-07 17:06 | disposition home or self-care (01) ==
LOC: ER 13:10
PROVIDERS: Physician Assistant
DX: R53.1 Weakness (principal); R44.0 Auditory hallucinations; Z79.01 Long term (current) use of anticoagulants; Z79.4 Long term (current) use of insulin; Z79.899 Other long term (current) drug therapy
CPT/HCPCS: 36415; 80053; 81001; 85025; 93005; 93010; 99285-25

== ENCOUNTER 2020-08-27 15:28 | Emergency (ER) | payer OTHER ==
[~2020-08-27] VITALS: Ht 160 cm; Wt 95.7 kg
[~2020-08-27 15:28] MED LIST changes: -Lopressor 25 mg25 MG PO
[2020-08-27 16:03] LABS: Source, Urine Catheter
[2020-08-27 16:10] LABS: BASOPHILS ABSOLUTE AUTO 0.06 K/mm3 (0.00-0.23); BASOPHILS PERCENT AUTO 1 % (0-2); EOSINOPHILS ABSOLUTE AUTO 0.11 K/mm3 (0.00-0.68); EOSINOPHILS PERCENT AUTO 2 % (0-6); Hematocrit 27.2 % (33.0-51.0); IMMATURE GRAN ABSOLUTE AUTO 0.02 K/mm3 (0.00-0.10); IMMATURE GRAN PERCENT AUTO 0 % (0-1); LYMPHOCYTES ABSOLUTE AUTO 1.03 K/mm3 (0.84-5.20); LYMPHOCYTES PERCENT AUTO 15 % (21-46); MONOCYTES ABSOLUTE AUTO 0.42 K/mm3 (0.16-1.47); MONOCYTES PERCENT AUTO 6 % (4-13); Mean Corpuscular HGB 27.3 pg (26.0-34.0); Mean Corpuscular HGB Conc 29.4 g/dL (31.5-36.5); Mean Corpuscular Volume 93 fL (80-100); Mean Platelet Volume 8.9 fL (9.1-12.4); NEUTROPHILS ABSOLUTE AUTO 5.08 K/mm3 (1.96-9.15); NEUTROPHILS PERCENT AUTO 76 % (41-73); Platelet Count 342 K/mm3 (150-400); RDW Coefficient Variation 13.9 % (11.7-14.2); RDW Standard Deviation 47.2 fL (35.1-46.3); Red Blood Cell Count 2.93 M/mm3 (3.80-5.20); White Blood Cell Count 6.72 K/mm3 (4.00-11.30)
[2020-08-27 16:11] LABS: Appearance, Urine Hazy (Clear); Bilirubin, Urine Neg (Neg); Blood, Urine 5+ (Neg); Color, Urine Yellow (P-Yellow); Glucose Qualitative, Urine Neg (Neg); Ketones, Urine Neg (Neg); Leukocyte Esterase, Urine 2+ (Neg); Nitrite, Urine Neg (Neg); Protein, Urine 1+ (Neg); Specific Gravity, Urine 1.025 (1.003-1.022); Urobilinogen, Urine NORM (Normal)
[2020-08-27 16:27] LABS: Bacteria Few /hpf; Squamous Epithelial Cells Few /hpf (Few)
[2020-08-27 16:45] LABS: Albumin, Blood 3.1 g/dL (3.4-5.0); Albumin/Globulin Ratio 0.6 (0.8-1.8); Bilirubin, Total 0.5 mg/dL (0.1-1.0); Calcium, Blood 9.5 mg/dL (8.5-10.1); Creatinine, Blood 1.07 mg/dL (0.40-1.00); Globulin, Blood 4.8 g/dL (2.2-4.0); Total Protein, Blood 7.9 g/dL (6.4-8.2)
[2020-08-27 16:56] LABS: U Amphetamine Screen Not Detected; U Barbituate Screen Not Detected; U Benzodiazapine Screen Not Detected; U Buprenorphine Screen Not Detected; U Cannabinoids Screen Not Detected; U Cocaine Screen Not Detected; U Methadone Screen Not Detected; U Methamphetamine Screen Not Detected; U Opiates Screen Not Detected; U Oxycodone Screen Not Detected; U Phencyclidine Screen Not Detected; U Propoxyphene Screen Not Detected
[2020-08-28] MEDS ORDERED: ALLO100 PO (13:11)
== END 2020-08-27 18:47 | disposition home or self-care (01) ==
LOC: ER 15:28
PROVIDERS: Emergency Medicine
DX: D64.9 Anemia, unspecified (principal); I11.0 Hypertensive heart disease with heart failure; I50.32 Chronic diastolic (congestive) heart failure; E78.5 Hyperlipidemia, unspecified; E11.40 Type 2 diabetes mellitus with diabetic neuropathy, unspecified; I48.91 Unspecified atrial fibrillation; Z79.01 Long term (current) use of anticoagulants; Z79.899 Other long term (current) drug therapy; Z79.4 Long term (current) use of insulin; Z88.2 Allergy status to sulfonamides; Z88.5 Allergy status to narcotic agent; Z88.8 Allergy status to other drugs, medicaments and biological substances; Z91.02 Food additives allergy status; Z91.018 Allergy to other foods
CPT/HCPCS: 71045; 80053; 81001; 85025; 87077; 87086; 87186; 93005; 93010; 99285-25

== ENCOUNTER 2020-08-28 03:38 | Inpatient (IN) | payer OTHER ==
[~2020-08-28] VITALS: Ht 157.5 cm; Wt 94.5 kg
[2020-08-28 05:53] LABS: Base Excess Venous 14.9 mmol/L; Bicarbonate Venous 37.1 mmol/L (24.0-30.0); PCO2 Venous 56.9 mmHg (38-42); PO2 Venous 114 mmHg (38-42); pH Blood Venous 7.44 (7.34-7.37)
[2020-08-28 06:01] LABS: BASOPHILS ABSOLUTE AUTO 0.06 K/mm3 (0.00-0.23); BASOPHILS PERCENT AUTO 1 % (0-2); EOSINOPHILS ABSOLUTE AUTO 0.08 K/mm3 (0.00-0.68); EOSINOPHILS PERCENT AUTO 1 % (0-6); Hematocrit 26.7 % (33.0-51.0); Hemoglobin 7.9 g/dL (11.5-16.0); IMMATURE GRAN ABSOLUTE AUTO 0.01 K/mm3 (0.00-0.10); IMMATURE GRAN PERCENT AUTO 0 % (0-1); LYMPHOCYTES ABSOLUTE AUTO 1.03 K/mm3 (0.84-5.20); LYMPHOCYTES PERCENT AUTO 14 % (21-46); MONOCYTES ABSOLUTE AUTO 0.51 K/mm3 (0.16-1.47); MONOCYTES PERCENT AUTO 7 % (4-13); Mean Corpuscular HGB 27.1 pg (26.0-34.0); Mean Corpuscular HGB Conc 29.6 g/dL (31.5-36.5); Mean Corpuscular Volume 92 fL (80-100); Mean Platelet Volume 8.7 fL (9.1-12.4); NEUTROPHILS ABSOLUTE AUTO 5.66 K/mm3 (1.96-9.15); NEUTROPHILS PERCENT AUTO 77 % (41-73); Platelet Count 317 K/mm3 (150-400); RDW Coefficient Variation 13.9 % (11.7-14.2); RDW Standard Deviation 47.3 fL (35.1-46.3); Red Blood Cell Count 2.91 M/mm3 (3.80-5.20); White Blood Cell Count 7.35 K/mm3 (4.00-11.30)
[2020-08-28 06:25] LABS: Percent Saturation 3.8 % (15.0-50.0)
[2020-08-28 06:28] LABS: Albumin, Blood 3.2 g/dL (3.4-5.0); Anion Gap 3 mmol/L (6-16); Blood Urea Nitrogen 33 mg/dL (8-24); Bun/Creatinine Ratio 28.9 (12.0-20.0); CO2, Blood 39 mmol/L (21-32); Calcium, Blood 9.8 mg/dL (8.5-10.1); Chloride, Blood 97 mmol/L (98-108); Creatinine, Blood 1.14 mg/dL (0.40-1.00); Glomerular Filtration Rate 50 (60-); Glucose, Blood 106 mg/dL (70-99); Phosphorus, Blood 3.6 mg/dL (2.5-4.9); Potassium, Blood 3.9 mmol/L (3.5-5.5); Sodium, Blood 139 mmol/L (136-145)
[2020-08-28 07:30] LABS: Influenza A, PCR Negative (NEGATIVE); Influenza B, PCR Negative (NEGATIVE); Resp Syncytial Virus, PCR Negative (NEGATIVE); SARS-Cov-2 (COVID-19) PCR, MMC Negative (NEGATIVE)
[2020-08-28] MEDS ORDERED: ALLO100 PO (13:11)
--- NOTE | 2020-08-28 16:03 | NUR ---
Review of pt chart and past visits. Met with pt to review her needs. Pt alert but very fatigued and painfull. Symptom review pt has headache and complains of great fatigue and discomfort. states she has not been able to sleep. During donversation pt having twitching and tighting of muscles. she states when this happens her back is very painfull. Pt bent forward at waist and unable to strighten her back. Twitching of face noted. She denies shortness of breath and grunts frequently. She denies nausea. She states she has been urinating blood. She is also hot all the time and can not get comfortable. Pt positioned for comfort and fan placed. Assited with her meds and some tylenol. She toleated pudding for the meds and a brief sip of fluids she did not want anything to eat. She states she ahs been on service with [facility] home health. Called [facility] coordinator Summer. Pt went ot [facility] for consult. [facility] chart states they offered her to consider hospice. They defered for second opionion. Reviw of dialgnositic and chart and history. pt PPS score is 25%. Suggest meeting with family and reveiw of am labs and consider hospice care to reduce suffering.
--- NOTE | 2020-08-28 18:37 | NUR ---
NO ACUTE EVENTS THIS HALF OF SHIFT. PATIENT ARRIVED FROM ED, ABLE TO AMBULATE SBA FROM GURNEY TO BED. PATIENT IS HUNCHED OVER, UNABLE TO STRAIGHTEN BACK, BUT WILL LOOK UP WHEN INSTRUCTED. PATIENT WILL FOLLOW VERBAL COMMANDS AT TIMES. PATIENT IS ORIENTED TO PLACE AND SELF, VERBALIZES THAT SHE IS IN A HOSPITAL IN [place], BUT NOT ORIENTED TO SITUATION. PATIENT IS EXPERIENCING HALLUCINATIONS AND CLAIMS SHE CANNOT LAY DOWN BECAUSE SHE "NEEDS TO TAKE CARE OF THE BABY." PATIENT ENDORSES FEELING PAIN IN BODY FROM BACK TO FEET. PATIENT IS PULLING AT HEART MONITOR AND AT IVs WHICH ARE SECURED WITH COBAN. PATIENT CONTINUES DE-GOWNING.
--- NOTE | 2020-08-29 04:55 | NUR ---
SUMMARY PATIENT IS ALERT AND ORIENTED TO SELF ONLY AND IS VERY CONFUSED. PATIENT IS HAVING HALLUCINATIONS AND GRABBING AT THINGS THAT ARE NOT THERE. 2 PERSON ASSIST TO BEDSIDE COMMODE ONCE DURING SHIFT. PATIENT HAS BEEN TURNED Q2 HOURS BUT IS ABLE TO SIT UP INDEPENDENTLY IN BED AND BRIEF CHANGED NEEDED. PATIENT SWALLOWS PILLS BUT TAKES A LOT OF COACHING. PATIENT STATED THROUGHOUT THE NIGHT THAT SHE WAS HURTING ALL OVER, FOR COMOFRT WE REPOSITIONED, APPLIED A HEATING PAD TO HER BACK, PROVIDED MUSIC FOR DISTRACTION, AND MEDICATED PER EMAR. PATIENT REPEATEDLY PULLED OFF OXYGEN AND 02 SATS WOULD DROP TO THE UPPER 70s TO LOWER 80s, RECOVERED AND WOULD REMAIN ABOVE 90% ON 3L VIA NC. TEACHING PROVIDED TO PATIENT ABOUT THE IMPORTANCE OF KEEPING HER NASAL CANULA IN HER NOSE. PROVIDED PATIENT WITH A DISTRACTION APRON TO PREVENT HER FROM PULLING AT 02 AND CORDS. VSS, NO ACUTE CHANGES. CALL LIGHT IN REACH, BED IN LOW POSITION. WILL CONTINUE TO MONITOR.
[2020-08-29 04:59] LABS: BASOPHILS ABSOLUTE AUTO 0.05 K/mm3 (0.00-0.23); BASOPHILS PERCENT AUTO 1 % (0-2); EOSINOPHILS PERCENT AUTO 0 % (0-6); Hematocrit 27.1 % (33.0-51.0); Hemoglobin 7.8 g/dL (11.5-16.0); IMMATURE GRAN ABSOLUTE AUTO 0.04 K/mm3 (0.00-0.10); IMMATURE GRAN PERCENT AUTO 0 % (0-1); LYMPHOCYTES ABSOLUTE AUTO 0.76 K/mm3 (0.84-5.20); LYMPHOCYTES PERCENT AUTO 8 % (21-46); MONOCYTES ABSOLUTE AUTO 0.61 K/mm3 (0.16-1.47); MONOCYTES PERCENT AUTO 7 % (4-13); Mean Corpuscular HGB 26.7 pg (26.0-34.0); Mean Corpuscular HGB Conc 28.8 g/dL (31.5-36.5); Mean Corpuscular Volume 93 fL (80-100); Mean Platelet Volume 8.8 fL (9.1-12.4); NEUTROPHILS ABSOLUTE AUTO 7.91 K/mm3 (1.96-9.15); NEUTROPHILS PERCENT AUTO 85 % (41-73); Platelet Count 343 K/mm3 (150-400); RDW Coefficient Variation 14.1 % (11.7-14.2); RDW Standard Deviation 48.4 fL (35.1-46.3); Red Blood Cell Count 2.92 M/mm3 (3.80-5.20); White Blood Cell Count 9.37 K/mm3 (4.00-11.30)
[2020-08-29 05:29] LABS: Bun/Creatinine Ratio 27.3 (12.0-20.0); Calcium, Blood 10.1 mg/dL (8.5-10.1); Creatinine, Blood 1.65 mg/dL (0.40-1.00); Potassium, Blood 4.6 mmol/L (3.5-5.5)
--- NOTE | 2020-08-29 09:08 | NUR ---
Pt resting in bed and is non responsive. Pt appears dyspneic as evidenced by work of breathing and respiratory rate. Spoke with Bedside RN Melvi and discussed case. Melvi reports Pt will pull her oxygen off and will desat taking significant time to recover. Called and spoke with son Brandon over the phone. Engaged in therapeutic discussion reagarding goals of care. Brandon reports [facility] is scheduled to come to the home today. Discussed the option for comfort care while Pt is in the hospital and educated on comfort care philosophy. Brandon appears defensive at times. Brandon reports he would like an attempt to improve Pt's condition in order to het her home on hospice. No other concerns reported at this time. Spoke with Dr Wylie and discussed case. Palliative Care will remain available.
[2020-08-29 09:46] LABS: BASOPHILS ABSOLUTE AUTO 0.02 K/mm3 (0.00-0.23); BASOPHILS PERCENT AUTO 0 % (0-2); EOSINOPHILS PERCENT AUTO 0 % (0-6); Hematocrit 28.2 % (33.0-51.0); Hemoglobin 8.1 g/dL (11.5-16.0); IMMATURE GRAN ABSOLUTE AUTO 0.05 K/mm3 (0.00-0.10); IMMATURE GRAN PERCENT AUTO 1 % (0-1); LYMPHOCYTES ABSOLUTE AUTO 0.61 K/mm3 (0.84-5.20); LYMPHOCYTES PERCENT AUTO 7 % (21-46); MONOCYTES ABSOLUTE AUTO 0.61 K/mm3 (0.16-1.47); MONOCYTES PERCENT AUTO 7 % (4-13); Mean Corpuscular HGB 26.6 pg (26.0-34.0); Mean Corpuscular HGB Conc 28.7 g/dL (31.5-36.5); Mean Corpuscular Volume 93 fL (80-100); Mean Platelet Volume 8.7 fL (9.1-12.4); NEUTROPHILS ABSOLUTE AUTO 7.64 K/mm3 (1.96-9.15); NEUTROPHILS PERCENT AUTO 86 % (41-73); Platelet Count 337 K/mm3 (150-400); RDW Coefficient Variation 14.4 % (11.7-14.2); RDW Standard Deviation 48.3 fL (35.1-46.3); Red Blood Cell Count 3.04 M/mm3 (3.80-5.20); White Blood Cell Count 8.93 K/mm3 (4.00-11.30)
[2020-08-29 09:55] LABS: International Normalized Ratio 1.2; Prothrombin Time Results 12.7 Sec (9.7-11.5)
[2020-08-29 10:48] LABS: Bun/Creatinine Ratio 24.6 (12.0-20.0); Calcium, Blood 9.7 mg/dL (8.5-10.1); Creatinine, Blood 1.95 mg/dL (0.40-1.00); Potassium, Blood 4.7 mmol/L (3.5-5.5)
--- NOTE | 2020-08-29 11:15 | NUR ---
Received call from Bedside IDA Ogden reporting son have arrived. Pt resting in bed with her eyes closed and is non responsive. Pt appears dyspneic as evidenced by work of breathing and increased respiratory rate. Sons Edgar and Pramod at bedside. Engaged in therapeutic listening as Edgar reports Pt appears worse than when he last visited with her. Per request from Edgar discussed further options for treatment. Pramod tearful at times throughout visit and this RN offered emotional support. Edgar and Pramod elect to place Pt on comfort care. Re-enforced education on comfort care philosophy with V/U made by family. Family would still like Pt to received thoracentesis for comfort. Family expresses appreciation of visit and report no other concerns at this time. Provided Palliative Care contact information and instructed to call with any questions or concerns. Spoke with Dr Wylie and relayed family's wishes for comfort care and thoracentesis. Dr Wylie will place orders and call family to educate on risks for thoracentesis. Spoke with Bedside IDA Ogden and discussed plan. Palliative Care will remain available for symptom management and therapeutic visits.
[2020-08-29 12:06] LABS: Base Excess Venous 11.8 mmol/L; Bicarbonate Venous 33.6 mmol/L (24.0-30.0); PCO2 Venous 83.6 mmHg (38-42); PO2 Venous 56.7 mmHg (38-42); pH Blood Venous 7.27 (7.34-7.37)
--- NOTE | 2020-08-29 15:15 | NUR ---
THORACENTESIS AT BEDSIDE, PATIENT TOLERATED WELL.
--- NOTE | 2020-08-29 18:25 | NUR ---
PATIENT WAS OBTUNDED AT START OF SHIFT, THIS RN DID STERNAL RUB AND PATIENT, THOUGH NON-VERBAL, STARTED TO MOAN AND MOVE AROUND. PATIENT ORIENTED TO NOTHING THIS SHIFT. PATIENT SEVERELY HYPOXIC AT TIMES, O2 IN 70S WHEN PATIENT FOUND TO HAVE PULLED OFF O2 VIA NASAL CANNULA. PATIENT PUT ON 5 L AND WOULD RETURN TO 88-91% O2. PATIENT WAS MOANING AND FIDGETING, RELIEF OF NON-VERBAL SIGNS OF DISCOMFORT NOTED WITH ADMINISTRATION OF FENTANYL PER EMAR. PATIENT'S SONS WERE CONTACTED REGARDING THE PATIENT'S DECREASE IN MENTAL STATUS AND INCREASED O2 NEEDS, GAMAL RN WITH PALLIATIVE NOTIFED AND CAME TO SEE PATIENT AND GOT IN TOUCH WITH SONS, DR. DONG NOTIFIED OF DECLINE IN PATIENT CONDITION. PATIENT'S SONS CAME IN TO BEDSIDE FOR FAMILY CONFERENCE WITH PALLIATIVE, DR. DONG SPOKE VIA PHONE WITH SONS SEVERAL TIMES. DECISION WAS MADE TO MOVE FORWARD WITH COMFORT CARE WITH PLANS FOR HOME ON HOSPICE, AND FOR THERAPEUTIC THORACENTESIS DONE TODAY. PATIENT TOLERATED THORACENTESIS WELL, BREATHING IS SIGNIFICANTLY LESS LABORED POST THORA. PATIENT ABLE TO BE TITRATED DOWN TO 2-3L NASAL CANNULA WITH O2 IN LOW TO MID 90S. NO SIGNS OF ACUTE DISTRESS AT THIS TIME.
--- NOTE | 2020-08-29 19:52 | NUR ---
PATIENT SLEEPING, BRIEF IS DRY AND CLEAN. PATIENT APPEARS COMFORTABLE.
--- NOTE | 2020-08-29 22:06 | NUR ---
PATIENT APPEARS COMFORTABLE SLEEPING . GOWN AND BREIF CHANGED. REPOSITIONED. BED LOW LOW POSITION, CALL LIGHT IN REACH.
--- NOTE | 2020-08-30 02:40 | NUR ---
PATIENT WOKE UP AND WAS COMLIANING OF PAIN. REPOSITIONED AND MEDICATED, SEE EMAR. PATIENT IS CONFUSED, WILL MONITOR AND MEDICATE IF NEEDED. CALL LIGHT IN REACH, WILL CONTINUE TO MONITOR.
--- NOTE | 2020-08-30 06:26 | NUR ---
SUMMARY PATIENT LETHARGIC AND SLEEPING MOST THE SHIFT. WOKE UP AT ONE POINT AND STATED SHE WAS IN PAIN PATIENT WAS MEDICATED, SEE EMAR. BRIEF CHECKED Q2 HOURS AND PATIENT REPOSITIONED FOR COMOFORT. 02 SATS 90% ON 1L VIA NC. PATIENT CURRENTLY RESTING COMFORTABLY. NO ACUTE CHANGES. CALL LIGHT IN REACH, WILL CONTINUE TO MONITOR.
--- NOTE | 2020-08-30 10:08 | NUR ---
Comfort Care Visit Pt resting in bed with her eyes closed. Pt appears to experiencing terminal restlessness as evidenced by constant movement of her upper extremities and clothes being off. Attempted to cover Pt back up with her immidiately removing gown and blanket. Provided therapeutic touch and gentl voice. Spoke with Bedside IDA Vera, discussed case and reviewed comfort medications. Palliative Care will remain available for symptom management and supportive visits.
--- NOTE | 2020-08-30 13:54 | NUR ---
REPOSITIONED FOR COMFORT. PILLOW PLACED UNDER HEELS.
--- NOTE | 2020-08-30 18:23 | NUR ---
SHIFT SUMMARY; REMAINS ON COMFORT CARE. MEDICATED PER ORDERS FOR PAIN AND AGITATION. REPOSITIONED THROUGHOUT SHIFT FOR DISCOMFORT. NO ACUTE CHANGES, WILL CONTINUE TO MONITOR AND TREAT UNTIL CHANGE OF SHIFT.
--- NOTE | 2020-08-30 22:10 | NUR ---
ASSUMED CARE OF 2109, SEE [facility] FOR COMFORT CARE ASSESSMENT.
--- NOTE | 2020-08-31 08:10 | NUR ---
NURSING PCU DAYSHIFT: Assumed care of pt at approx 0700. Increased lethargy from previous day, moans occasionally, does not respond to verbal stimuli. Pt remains comfort care, positioning, meds, and care provided accordingly. Pt appears to be comfortable at this time w/no signs of distress. No family currently at bedside, care team rounding frequently as pt is unable to express needs. Cont to monitor for any changes.
--- NOTE | 2020-08-31 13:48 | NUR ---
NURSING PCU FINAL DISCHARGE: Pt passed w/TOD at 1157. Peaceful w/no s/s of distress at that time. Family notified by clinical coordinator, decision made by all family to not see pt at bedside after expiration, donation line notified, calls placed to PMD and nursing super. Family chose [facility] in [place], staff at bedside to remove for final DC.
== END 2020-08-31 14:03 | DRG 189 ==
LOC: ER 03:38 → PCU 05:56 → ERHOLD 05:56 → PCU 14:18
PROVIDERS: Internal Medicine; ADMIT Family Medicine
PROC: 0W9930Z Drainage of Right Pleural Cavity with Drainage Device, Percutaneous Approach (ICD-10-PCS; principal; 2020-08-29)
DX: J96.21 Acute and chronic respiratory failure with hypoxia (principal); G92 Toxic encephalopathy; I50.32 Chronic diastolic (congestive) heart failure; I48.20 Chronic atrial fibrillation, unspecified; Z68.42 Body mass index [BMI] 45.0-49.9, adult; E66.2 Morbid (severe) obesity with alveolar hypoventilation; I13.0 Hypertensive heart and chronic kidney disease with heart failure and stage 1 through stage 4 chronic kidney disease, or unspecified chronic kidney disease; N39.0 Urinary tract infection, site not specified; J91.8 Pleural effusion in other conditions classified elsewhere; Z79.4 Long term (current) use of insulin; G25.81 Restless legs syndrome; E11.42 Type 2 diabetes mellitus with diabetic polyneuropathy; J96.22 Acute and chronic respiratory failure with hypercapnia; N18.30 Chronic kidney disease, stage 3 unspecified; Z79.01 Long term (current) use of anticoagulants; J98.4 Other disorders of lung; E11.65 Type 2 diabetes mellitus with hyperglycemia; Z51.5 Encounter for palliative care; Z66 Do not resuscitate; C73 Malignant neoplasm of thyroid gland
CPT/HCPCS: 0241U; 32555; 36415; 71045; 80048; 80069; 82607; 82728; 82746; 82803; 82947; 83540; 83550; 83880; 85025; 85610; 85730; 96365; 99285-25; A9270; A9270-GY; J0696; J1630; J1815; J3010